=== PATIENT | male | born 1930 | race Caucasian/White ===

== ENCOUNTER 2020-06-14 07:33 | Inpatient (IN) | payer MEDICARE ==
[~2020-06-14] VITALS: Ht 188 cm; Wt 89.4 kg
--- NOTE | 2020-06-14 07:38 | Emergency Room Report ---
History of Present Illness General Chief Complaint: Hematemesis Source: Patient Present Illness HPI 89-year-old male history of hypertension, lymphoma presents with hematemesis, started today, no known aggravating or alleviating factors severity is moderate , constant patient denies any chest pain, but he does endorse some shortness of breath he endorses trace blood with vomit/cough, patient is unable to specify which, patient feels lightheaded, he also endorses some epigastric pain periumbilical pain that started as well. Allergies: Coded Allergies: No Known Allergies (Unverified , 06/14/20) Patient History Past Medical History: see triage record Reviewed Nursing Documentation: PMH: Agreed; PSxH: Agreed Review of Systems All Other Systems: negative except mentioned in HPI Physical Exam Sp02 EP Interpretation: reviewed, normal General Appearance: alert, non-toxic, mild distress Head: normocephalic, atraumatic Eyes: bilateral eye PERRL, bilateral eye EOMI ENT: uvula midline, dry mucus membranes Neck: supple, thyroid normal, supple/symm/no masses Respiratory: lungs clear, no respiratory distress, no retraction, no accessory muscle use Cardiovascular #1: normal peripheral pulses, regular rate, rhythm, no edema, no gallop, no murmur Gastrointestinal: non tender, no guarding, no rebound, distended Musculoskeletal: normal inspection Neurologic: alert, oriented x3 Psychiatric: mood/affect normal Skin: no rash, warm/dry Procedures Critical Care Time Critical Care Time Given the critical condition in which the patient arrived, the patient was immediately assessed by myself and the nurse, and cardiac monitoring initiated due to the potential for rapid decompensation of the patient's clinical condition. During the course of the patient's stay, I spent a considerable amount of time at the bedside performing serial re-evaluations of the patient's hemodynamic and clinical status because of the recognized potential threat to life or limb in this condition. I then had a chance to review not only all of the available current laboratory and radiographic studies obtained today, but I also reviewed old records available to me at the time. Additionally, any ancillary information available including black puller records were reviewed. Sequential vital signs were obtained. Critical Care time of 37 minutes was performed exclusive of billable procedures. Medical Decision Making Diagnostic Impression: Primary Impression: GI bleed Qualified Codes: K92.2 - Gastrointestinal hemorrhage, unspecified Additional Impressions: YU (acute kidney injury) Lactic acid acidosis Transaminitis ER Course 89-year-old male history of lymphoma presents with possible hemoptysis versus hematemesis, patient given Protonix, fluids, type and screen sent Plan for admission given his advanced age and multiple comorbidities Patient given broad-spectrum antibiotics ceftriaxone, vancomycin Spoke with Dr. Alexandru Hawkins at 9:50AM, patient is authorized to stay in [place]. Reevaluation 10:54 AM, lactic acidosis is improving with fluids Patient with a lymph node causing postobstructive hydroureter and hydronephrosis Plan for admission and work-up quevedo placed Patient admitted to Dr. Bailey Laboratory Tests Test 06/14/20 07:45 06/14/20 08:40 White Blood Count 10.0 K/UL (4.8-10.8) Red Blood Count 5.13 M/UL (4.70-6.10) Hemoglobin 13.3 G/DL (14.2-18.0) L Hematocrit 43.6 % (42.0-52.0) Mean Corpuscular Volume 85 FL (80-99) Mean Corpuscular Hemoglobin 25.9 PG (27.0-31.0) L Mean Corpuscular Hemoglobin Concent 30.4 G/DL (32.0-36.0) L Red Cell Distribution Width 13.9 % (11.6-14.8) Platelet Count 149 K/UL (150-450) L Mean Platelet Volume 10.2 FL (6.5-10.1) H Neutrophils (%) (Auto) 72.5 % (45.0-75.0) Lymphocytes (%) (Auto) 17.3 % (20.0-45.0) L Monocytes (%) (Auto) 9.3 % (1.0-10.0) Eosinophils (%) (Auto) 0.1 % (0.0-3.0) Basophils (%) (Auto) 0.8 % (0.0-2.0) Prothrombin Time 13.4 SEC (9.30-11.50) H Prothrombin Time INR 1.2 (0.9-1.1) H Activated Partial Thromboplast Time 30 SEC (23-33) Sodium Level 147 MMOL/L (136-145) H Potassium Level 4.7 MMOL/L (3.5-5.1) Chloride Level 106 MMOL/L (98-107) Carbon Dioxide Level 24 MMOL/L (21-32) Anion Gap 17 mmol/L (5-15) H Blood Urea Nitrogen 154 mg/dL (7-18) H Creatinine 7.3 MG/DL (0.55-1.30) H Estimated Glomerular Filtration Rate 7.1 mL/min (>60) Glucose Level 113 MG/DL (74-106) H Lactic Acid Level 5.30 mmol/L (0.4-2.0) H Calcium Level 10.8 MG/DL (8.5-10.1) H Phosphorus Level 8.4 MG/DL (2.5-4.9) H Magnesium Level 3.2 MG/DL (1.8-2.4) H Total Bilirubin 1.0 MG/DL (0.2-1.0) Aspartate Amino Transferase (AST) 109 U/L (15-37) H Alanine Aminotransferase (ALT) 124 U/L (12-78) H Alkaline Phosphatase 380 U/L (46-116) H Troponin I 0.039 ng/mL (0.000-0.056) Pro-B-Type Natriuretic Peptide 1320 pg/mL (0-125) H Total Protein 6.5 G/DL (6.4-8.2) Albumin 3.1 G/DL (3.4-5.0) L Globulin 3.4 g/dL Albumin/Globulin Ratio 0.9 (1.0-2.7) L Lipase 726 U/L (73-393) H Urine Color Pale yellow Urine Appearance Clear Urine pH 5 (4.5-8.0) Urine Specific [place] 1.010 (1.005-1.035) Urine Protein Negative (NEGATIVE) Urine Glucose (UA) Negative (NEGATIVE) Urine Ketones Negative (NEGATIVE) Urine Blood 2+ (NEGATIVE) H Urine Nitrite Negative (NEGATIVE) Urine Bilirubin Negative (NEGATIVE) Urine Urobilinogen Normal MG/DL (0.0-1.0) Urine Leukocyte Esterase 1+ (NEGATIVE) H Urine RBC 10-15 /HPF (0 - 0) H Urine WBC 0-2 /HPF (0 - 0) Urine Squamous Epithelial Cells Few /LPF (NONE/OCC) Urine Bacteria Occasional /HPF (NONE) EKG Diagnostic Results EKG Time: 07:54 EP Interpretation: NSR, rate 87, QTc 445, no acute ST elevations, left axis deviation Rhythm Strip Diag. Results Rhythm Strip Time: 08:05 EP Interpretation: yes Rate: 99 Rhythm: NSR, no PVC's, no ectopy Chest X-Ray Diagnostic Results Chest X-Ray Diagnostic Results : Chest X-Ray Ordered: Yes # of Views/Limited/Complete: 1 View Indication: Other - Cough EP Interpretation: Yes Interpretation: no consolidation, no effusion, no pneumothorax, no acute cardiopulmonary disease Impression: No acute disease Electronically Signed by: Eric Sprague MD CT/MRI/US Diagnostic Results CT/MRI/US Diagnostic Results : Impression TECHNIQUE: No oral contrast, per emergency room physician request. No IV contrast, due to history of renal insufficiency. Spiral acquisitions obtained through the chest, abdomen, and pelvis. Multiplanar reconstructions were generated. Total dose length product 624 mGycm. CTDIvol(s) 8 mGy. Radiation dose was minimized using automated exposure control COMPARISON: none FINDINGS Chest: The upper lobes and upper portions of the lower lobes demonstrate mild panlobular emphysema. A few small bullae are seen in the right upper lobe. A few areas of scarring are seen in the anterior inferior right upper lobe, within the right middle lobe, within the left lower lobe and inferior lingula. A calcified granuloma is seen at the left lung base and there is calcification within some of the scarring in the right middle lobe. No infiltrates, effusions, masses, nodules, or congestion demonstrated. A mass, presumably an enlarged lymph node, there is seen anterior to the ascending thoracic aorta. This measures 3.2 cm in diameter. No other mediastinal or hilar mass or adenopathy demonstrated. The heart size is normal. No pericardial effusion. There is very mild thickening of the distal esophageal wall and possibly a small hiatal hernia. The included thyroid is unremarkable. No axillary or chest wall mass or adenopathy. There is very mild bilateral gynecomastia. The bones are unremarkable except for mild degenerative spondylosis changes. The ascending thoracic aorta is ectatic but not frankly aneurysmal Abdomen pelvis: Lack of enteric contrast limits assessment of the GI tract. There is colonic diverticulosis. The appendix is normal. No small bowel distention. No free or loculated intraperitoneal gas or fluid is evident. There is extensive abdominal and pelvic lymphadenopathy. Enlarged nodes are seen anterior superior to the left hepatic lobe, within the lesser sac, within the reginaldo hepatis and within the retroperitoneum. There are enlarged bilateral iliac chain nodes. Enlarged nodes are also seen centrally in the pelvis. There is a mass which appears to be with in the wall of the dome of of the bladder the and extending exophytically from it. There is a mass which appears intimately related to the colon wall. The gallbladder is markedly abnormal, demonstrates what appear to be multiple areas of hyperattenuating mural thickening. No definite gallstones. No biliary ductal dilatation. Lack of IV contrast limits assessment of the solid organs. The liver demonstrates a subcentimeter low-attenuation lesion in segment 4A which is too small to characterize. The pancreas demonstrates what appears to be an area of enlargement at the body tail junction which appears to be intrinsic to the pancreatic parenchyma. Immediately inferior to this is an enlarged node. The spleen and adrenals are unremarkable. The kidneys demonstrate multiple fluid attenuation cysts as well as numerous hyperattenuating lesions. Most of the hyperattenuating lesions demonstrate Hounsfield numbers over 70, consistent with hyperdense cysts, but others demonstrate nonspecific attenuation. In addition, there is a large mass measuring 5 cm within the central left kidney which is isoattenuating to normal parenchyma. There is a complex cyst in the lower pole of left kidney which demonstrates somewhat thick hawkins, mural calcifications, and somewhat thick mural septa. The right kidney is mildly to moderately hydronephrotic, and there is hydroureter extending to just above the bladder, where an enlarged node is noted. Distal to this enlarged node, the ureter is normal in caliber. There are no renal or ureteral calculi. No left hydronephrosis or hydroureter The prostate is enlarged, measures 5.2 cm transverse diameter. IMPRESSION: Extensive lymphadenopathy, as described in detail above. Predominantly within the abdomen and pelvis, but there is also an enlarged mediastinal node. This is in keeping with stated clinical history of lymphoma. No definite acute thoracic abnormality Right hydronephrosis and hydroureter, apparently due to distal ureteral obstruction by an enlarged pelvic node Markedly abnormal and unusual appearing gallbladder wall, with areas of hyperattenuating mural thickening. Further investigation with sonography should be considered Intermediate attenuation 5 cm interpolar region left renal mass. While possibly a proteinaceous cyst, the possibility of solid neoplasm should also be considered. Correlate with clinical history, consider sonography to better characterize as clinically indicated Multiple bilateral fluid attenuation and hyperattenuating renal cysts. Other slightly less hyperattenuating renal lesions are indeterminate but most likely represent hyperattenuating/proteinaceous cysts as well COPD changes and areas of scarring, as described Mild distal esophageal wall thickening and possibly a small hiatal hernia Prostatomegaly Other findings as noted, including degenerative spondylosis, old granulomatous disease, mild gynecomastia The CT scanner at [facility] is accredited by the [employer] and the scans are performed using protocols designed to limit radiation exposure to as low as reasonably achievable to attain images of sufficient resolution adequate for diagnostic evaluation. Dictated By: Dharmesh Lee MD Electronically Signed By: Dharmesh Lee MD Signed Date/Time 06/14/20 1048 CC: Eric Sprague MD Disposition: ADMITTED INPATIENT Condition: Serious Eric Sprague MD Jun 14, 2020 07:38
[2020-06-14] MEDS ORDERED: cefTRIAXone 1 GM in NS 55 ML IVPB ONE (07:45)
[2020-06-14] MEDS ORDERED: Omnipaque 350 100ml vial INJ PRN ×2 (07:45)
[2020-06-14] MEDS ORDERED: Pantoprazole Inj IVP ONE (07:45)
[2020-06-14 07:50] VITALS: BP 83/40
[2020-06-14 08:19] LABS: BASOPHILS % (AUTO) 0.8 % (0.0-2.0); EOSINOPHILS % (AUTO) 0.1 % (0.0-3.0); HEMATOCRIT 43.6 % (42.0-52.0); HEMOGLOBIN 13.3 G/DL (14.2-18.0); LYMPHOCYTES % (AUTO) 17.3 % (20.0-45.0); MEAN CORPUSCULAR VOLUME 85 FL (80-99); MONOCYTES % (AUTO) 9.3 % (1.0-10.0); NEUTROPHILS % (AUTO) 72.5 % (45.0-75.0); PLATELET COUNT 149 K/UL (150-450); RED BLOOD COUNT 5.13 M/UL (4.70-6.10); RED CELL DISTRIBUTION WIDTH 13.9 % (11.6-14.8)
[2020-06-14 08:23] LABS: ANION GAP 17 mmol/L (5-15); BLOOD UREA NITROGEN 154 mg/dL (7-18); CALCIUM 10.8 MG/DL (8.5-10.1); CARBON DIOXIDE 24 MMOL/L (21-32); CHLORIDE 106 MMOL/L (98-107); CREATININE 7.3 MG/DL (0.55-1.30); POTASSIUM 4.7 MMOL/L (3.5-5.1); SODIUM 147 MMOL/L (136-145)
[2020-06-14 08:24] LABS: INR 1.2 (0.9-1.1)
[2020-06-14 08:29] LABS: ALANINE AMINOTRANSFERASE 124 U/L (12-78); ALBUMIN 3.1 G/DL (3.4-5.0); ALBUMIN/GLOBULIN RATIO 0.9 (1.0-2.7); ALKALINE PHOSPHATASE 380 U/L (46-116); ASPARTATE AMINO TRANSFERASE 109 U/L (15-37); PHOSPHORUS 8.4 MG/DL (2.5-4.9)
[2020-06-14] MEDS ORDERED: Vancomycin 1 GM in NS 275 ML IVPB ONE (08:30)
--- NOTE | 2020-06-14 08:42 | Diagnostic Imaging Report ---
Indication: Cough Technique: One view of the chest Comparison: none Findings: There are bilateral basilar atelectatic changes. Lungs and pleural spaces otherwise clear. The heart size is normal. Impression: Bibasilar atelectasis. No acute process otherwise
[2020-06-14 09:00] VITALS: BP 123/70
[2020-06-14 09:13] LABS: APPEARANCE,URINE CLEAR; BILIRUBIN, URINE NEGATIVE (NEGATIVE); COLOR,URINE PALE YELLOW; GLUCOSE, URINE (UA) NEGATIVE (NEGATIVE); KETONES,URINE NEGATIVE (NEGATIVE); LEUKOCYTE ESTERASE ,URINE 1+ (NEGATIVE); NITRITE,URINE NEGATIVE (NEGATIVE); PH,URINE 5 (4.5-8.0); PROTEIN,URINE NEGATIVE (NEGATIVE); UROBILINOGEN,URINE NORMAL MG/DL (0.0-1.0)
--- NOTE | 2020-06-14 10:53 | Diagnostic Imaging Report ---
CLINICAL INDICATION:Hematemesis, shortness of breath, epigastric and periumbilical pain, hemoptysis, history of lymphoma TECHNIQUE: No oral contrast, per emergency room physician request. No IV contrast, due to history of renal insufficiency. Spiral acquisitions obtained through the chest, abdomen, and pelvis. Multiplanar reconstructions were generated. Total dose length product 624 mGycm. CTDIvol(s) 8 mGy. Radiation dose was minimized using automated exposure control COMPARISON: none FINDINGS Chest: The upper lobes and upper portions of the lower lobes demonstrate mild panlobular emphysema. A few small bullae are seen in the right upper lobe. A few areas of scarring are seen in the anterior inferior right upper lobe, within the right middle lobe, within the left lower lobe and inferior lingula. A calcified granuloma is seen at the left lung base and there is calcification within some of the scarring in the right middle lobe. No infiltrates, effusions, masses, nodules, or congestion demonstrated. A mass, presumably an enlarged lymph node, there is seen anterior to the ascending thoracic aorta. This measures 3.2 cm in diameter. No other mediastinal or hilar mass or adenopathy demonstrated. The heart size is normal. No pericardial effusion. There is very mild thickening of the distal esophageal wall and possibly a small hiatal hernia. The included thyroid is unremarkable. No axillary or chest wall mass or adenopathy. There is very mild bilateral gynecomastia. The bones are unremarkable except for mild degenerative spondylosis changes. The ascending thoracic aorta is ectatic but not frankly aneurysmal Abdomen pelvis: Lack of enteric contrast limits assessment of the GI tract. There is colonic diverticulosis. The appendix is normal. No small bowel distention. No free or loculated intraperitoneal gas or fluid is evident. There is extensive abdominal and pelvic lymphadenopathy. Enlarged nodes are seen anterior superior to the left hepatic lobe, within the lesser sac, within the reginaldo hepatis and within the retroperitoneum. There are enlarged bilateral iliac chain nodes. Enlarged nodes are also seen centrally in the pelvis. There is a mass which appears to be with in the wall of the dome of of the bladder the and extending exophytically from it. There is a mass which appears intimately related to the colon wall. The gallbladder is markedly abnormal, demonstrates what appear to be multiple areas of hyperattenuating mural thickening. No definite gallstones. No biliary ductal dilatation. Lack of IV contrast limits assessment of the solid organs. The liver demonstrates a subcentimeter low-attenuation lesion in segment 4A which is too small to characterize. The pancreas demonstrates what appears to be an area of enlargement at the body tail junction which appears to be intrinsic to the pancreatic parenchyma. Immediately inferior to this is an enlarged node. The spleen and adrenals are unremarkable. The kidneys demonstrate multiple fluid attenuation cysts as well as numerous hyperattenuating lesions. Most of the hyperattenuating lesions demonstrate Hounsfield numbers over 70, consistent with hyperdense cysts, but others demonstrate nonspecific attenuation. In addition, there is a large mass measuring 5 cm within the central left kidney which is isoattenuating to normal parenchyma. There is a complex cyst in the lower pole of left kidney which demonstrates somewhat thick hawkins, mural calcifications, and somewhat thick mural septa. The right kidney is mildly to moderately hydronephrotic, and there is hydroureter extending to just above the bladder, where an enlarged node is noted. Distal to this enlarged node, the ureter is normal in caliber. There are no renal or ureteral calculi. No left hydronephrosis or hydroureter The prostate is enlarged, measures 5.2 cm transverse diameter. IMPRESSION: Extensive lymphadenopathy, as described in detail above. Predominantly within the abdomen and pelvis, but there is also an enlarged mediastinal node. This is in keeping with stated clinical history of lymphoma. No definite acute thoracic abnormality Right hydronephrosis and hydroureter, apparently due to distal ureteral obstruction by an enlarged pelvic node Markedly abnormal and unusual appearing gallbladder wall, with areas of hyperattenuating mural thickening. Further investigation with sonography should be considered Intermediate attenuation 5 cm interpolar region left renal mass. While possibly a proteinaceous cyst, the possibility of solid neoplasm should also be considered. Correlate with clinical history, consider sonography to better characterize as clinically indicated Multiple bilateral fluid attenuation and hyperattenuating renal cysts. Other slightly less hyperattenuating renal lesions are indeterminate but most likely represent hyperattenuating/proteinaceous cysts as well COPD changes and areas of scarring, as described Mild distal esophageal wall thickening and possibly a small hiatal hernia Prostatomegaly Other findings as noted, including degenerative spondylosis, old granulomatous disease, mild gynecomastia The CT scanner at [facility] is accredited by the [employer] and the scans are performed using protocols designed to limit radiation exposure to as low as reasonably achievable to attain images of sufficient resolution adequate for diagnostic evaluation.
[2020-06-14 12:28] VITALS: BP 147/78
--- NOTE | 2020-06-14 12:39 | Consultation ---
History of Present Illness General Date patient seen: Jun 14, 2020 Chief Complaint: Gastrointestinal Bleed Present Illness HPI 89-year-old male with a history of hypertension, lymphoma presented to ER with CC of hematemesis, epigastric pain, some shortness of breath started today , patient denied any chest pain, he has trace blood with vomit/cough, patient is unable to specify which, patient feels lightheaded. Pt was found to be in acute renal failure and is admitted for further management. Allergies: Coded Allergies: No Known Allergies (Unverified , 06/14/20) Medication History Scheduled Apixaban (Eliquis), 5 MG PO BID, (Reported) Atorvastatin (Lipitor), 20 MG ORAL BEDTIME, (Reported) Cholecalciferol (Vitamin D3) (Vitamin D3), 2,000 UNIT MC DAILY, (Reported) Colchicine (Colchicine), 0.6 MG PO NEEDED, (Reported) Cyanocobalamin (Vitamin B-12) (B-12), 1,000 MCG PO DAILY, (Reported) Finasteride (Finasteride), 5 MG ORAL DAILY, (Reported) Furosemide* (Lasix*), 40 MG ORAL TWICE A DAY, (Reported) Hydralazine Hcl* (Hydralazine Hcl*), 25 MG ORAL BID, (Reported) Labetalol Hcl* (Normodyne*), 200 MG ORAL EVERY 12 HOURS, (Reported) Omeprazole (Omeprazole), 20 MG PO DAILY, (Reported) Prednisone (Prednisone), 1.5 MG PO DAILY, (Reported) Tamsulosin HCl (Flomax), 0.4 MG ORAL BID, (Reported) Scheduled PRN Hydrocodone Bit/Acetaminophen 10-325* ([place] 10-325*), 1 TAB ORAL Q6H PRN for For Pain, (Reported) Patient History Healthcare decision maker Resuscitation status Advanced Directive on File Past Medical/Surgical History Past Medical/Surgical History: (1) History of hypertension (2) Lymphoma Review of Systems All Other Systems: negative except mentioned in HPI Physical Exam General Appearance: cachetic, thin Lines, tubes and drains: peripheral HEENT: normocephalic, atraumatic Neck: non-tender, normal alignment, supple Respiratory/Chest: chest wall non-tender, lungs clear, normal breath sounds Cardiovascular/Chest: normal rate Abdomen: normal bowel sounds, non tender Genitourinary/Rectal: normal genital exam, normal rectal exam Last 24 Hour Vital Signs Date Time Temp Pulse Resp B/P (MAP) Pulse Ox O2 Delivery O2 Flow Rate FiO2 06/14/20 12:28 98.0 86 20 147/78 97 Room Air 06/14/20 10:11 97.4 06/14/20 09:00 97.5 87 16 123/70 100 Room Air 06/14/20 07:50 97.5 106 17 83/40 99 Room Air 06/14/20 07:50 105 Room Air 06/14/20 07:40 97.5 88 14 81/40 (54) 99 Room Air Laboratory Tests Test 06/14/20 07:45 06/14/20 08:40 06/14/20 10:10 White Blood Count 10.0 K/UL (4.8-10.8) Red Blood Count 5.13 M/UL (4.70-6.10) Hemoglobin 13.3 G/DL (14.2-18.0) L Hematocrit 43.6 % (42.0-52.0) Mean Corpuscular Volume 85 FL (80-99) Mean Corpuscular Hemoglobin 25.9 PG (27.0-31.0) L Mean Corpuscular Hemoglobin Concent 30.4 G/DL (32.0-36.0) L Red Cell Distribution Width 13.9 % (11.6-14.8) Platelet Count 149 K/UL (150-450) L Mean Platelet Volume 10.2 FL (6.5-10.1) H Neutrophils (%) (Auto) 72.5 % (45.0-75.0) Lymphocytes (%) (Auto) 17.3 % (20.0-45.0) L Monocytes (%) (Auto) 9.3 % (1.0-10.0) Eosinophils (%) (Auto) 0.1 % (0.0-3.0) Basophils (%) (Auto) 0.8 % (0.0-2.0) Prothrombin Time 13.4 SEC (9.30-11.50) H Prothromb Time International Ratio 1.2 (0.9-1.1) H Activated Partial Thromboplast Time 30 SEC (23-33) Sodium Level 147 MMOL/L (136-145) H Potassium Level 4.7 MMOL/L (3.5-5.1) Chloride Level 106 MMOL/L (98-107) Carbon Dioxide Level 24 MMOL/L (21-32) Anion Gap 17 mmol/L (5-15) H Blood Urea Nitrogen 154 mg/dL (7-18) H Creatinine 7.3 MG/DL (0.55-1.30) H Estimat Glomerular Filtration Rate 7.1 mL/min (>60) Glucose Level 113 MG/DL (74-106) H Lactic Acid Level 5.30 mmol/L (0.4-2.0) H 3.10 mmol/L (0.66-2.22) H Calcium Level 10.8 MG/DL (8.5-10.1) H Phosphorus Level 8.4 MG/DL (2.5-4.9) H Magnesium Level 3.2 MG/DL (1.8-2.4) H Total Bilirubin 1.0 MG/DL (0.2-1.0) Aspartate Amino Transf (AST/SGOT) 109 U/L (15-37) H Alanine Aminotransferase (ALT/SGPT) 124 U/L (12-78) H Alkaline Phosphatase 380 U/L (46-116) H Troponin I 0.039 ng/mL (0.000-0.056) Pro-B-Type Natriuretic Peptide 1320 pg/mL (0-125) H Total Protein 6.5 G/DL (6.4-8.2) Albumin 3.1 G/DL (3.4-5.0) L Globulin 3.4 g/dL Albumin/Globulin Ratio 0.9 (1.0-2.7) L Lipase 726 U/L (73-393) H Urine Color Pale yellow Urine Appearance Clear Urine pH 5 (4.5-8.0) Urine Specific [place] 1.010 (1.005-1.035) Urine Protein Negative (NEGATIVE) Urine Glucose (UA) Negative (NEGATIVE) Urine Ketones Negative (NEGATIVE) Urine Blood 2+ (NEGATIVE) H Urine Nitrite Negative (NEGATIVE) Urine Bilirubin Negative (NEGATIVE) Urine Urobilinogen Normal MG/DL (0.0-1.0) Urine Leukocyte Esterase 1+ (NEGATIVE) H Urine RBC 10-15 /HPF (0 - 0) H Urine WBC 0-2 /HPF (0 - 0) Urine Squamous Epithelial Cells Few /LPF (NONE/OCC) Urine Bacteria Occasional /HPF (NONE) Height (Feet): 6 Height (Inches): 2.00 Weight (Pounds): 180 Medications Current Medications Medications (Trade) Dose Ordered Sig/Tasia Route PRN Reason Start Time Stop Time Status Last Admin Dose Admin Acetaminophen (Tylenol) 650 mg Q4H PRN ORAL fever 06/14/20 12:30 07/14/20 12:29 UNV Dextrose (Dextrose 50%) 25 ml Q30M PRN IV Hypoglycemia 06/14/20 12:30 09/12/20 12:29 UNV Dextrose (Dextrose 50%) 50 ml Q30M PRN IV Hypoglycemia 06/14/20 12:30 09/12/20 12:29 UNV Dextrose/Sodium Chloride 1,000 ml @ 100 mls/hr Q10H IV 06/14/20 12:27 07/14/20 12:26 UNV Diphenhydramine HCl (Benadryl) 25 mg Q6H PRN ORAL Itching/Pruritis 06/14/20 12:30 07/14/20 12:29 UNV Ondansetron HCl (Zofran) 4 mg Q6H PRN IVP Nausea & Vomiting 06/14/20 12:30 07/14/20 12:29 UNV Temazepam (Restoril) 15 mg HSPRN PRN ORAL Insomnia 06/14/20 12:30 06/21/20 12:29 UNV Assessment/Plan Problem List: (1) Upper GI bleeding ICD Codes: K92.2 - Gastrointestinal hemorrhage, unspecified SNOMED: 22449863 (2) YU (acute kidney injury) ICD Codes: N17.9 - Acute kidney failure, unspecified SNOMED: 01313993, [id number] (3) Hydronephrosis ICD Codes: N13.30 - Unspecified hydronephrosis SNOMED: 97165750 (4) Obstructive nephropathy ICD Codes: N13.8 - Other obstructive and reflux uropathy SNOMED: 75074656 (5) Lymphoma ICD Codes: C85.90 - Non-Hodgkin lymphoma, unspecified, unspecified site SNOMED: 756457739 (6) History of hypertension ICD Codes: Z86.79 - Personal history of other diseases of the circulatory system SNOMED: 411089586 Assessment/Plan: iv fluids pt might need a nephrostomy check electrolytes h2 blockers Premarin for uremic bleeding avoid heparin and NSAID avoid nephrotoxic meds. dvt prophylaxis. Pedro Luis Michaels MD Jun 14, 2020 12:39
[2020-06-14] MEDS ORDERED: Lidocaine 1% Plain 30 ml INJ PRN (12:45)
[2020-06-14] MEDS ORDERED: Isovue-300 100ml vial INJ PRN (12:45)
[2020-06-14] MEDS: D5NS 1,000 ML IV SCH ×2 (13:00→23:20)
[2020-06-14 13:30] VITALS: BP 114/57
--- NOTE | 2020-06-14 14:38 | General Progress Note ---
Assessment/Plan Problem List: (1) Obstructive nephropathy ICD Codes: N13.8 - Other obstructive and reflux uropathy SNOMED: 92237670 (2) Lymphoma ICD Codes: C85.90 - Non-Hodgkin lymphoma, unspecified, unspecified site SNOMED: 873813004 (3) Hydronephrosis ICD Codes: N13.30 - Unspecified hydronephrosis SNOMED: 06701085 (4) GI bleed ICD Codes: K92.2 - Gastrointestinal hemorrhage, unspecified SNOMED: 60953821 Qualifiers: Qualified Codes: K92.2 - Gastrointestinal hemorrhage, unspecified (5) Transaminitis ICD Codes: R74.0 - Nonspecific elevation of levels of transaminase and lactic acid dehydrogenase [LDH] SNOMED: 664816240, 873174415 (6) Lactic acid acidosis ICD Codes: E87.2 - Acidosis SNOMED: 64362211 (7) History of hypertension ICD Codes: Z86.79 - Personal history of other diseases of the circulatory system SNOMED: 959071848 Assessment/Plan: ppi fu H&H abd us hepatitis panel repeat lfts in am EGD in am Subjective Allergies: Coded Allergies: No Known Allergies (Unverified , 06/14/20) Objective Last 24 Hour Vital Signs Date Time Temp Pulse Resp B/P (MAP) Pulse Ox O2 Delivery O2 Flow Rate FiO2 06/14/20 13:40 Room Air 06/14/20 12:28 98.0 86 20 147/78 97 Room Air 06/14/20 10:11 97.4 06/14/20 09:00 97.5 87 16 123/70 100 Room Air 06/14/20 07:50 97.5 106 17 83/40 99 Room Air 06/14/20 07:50 105 Room Air 06/14/20 07:40 97.5 88 14 81/40 (54) 99 Room Air Laboratory Tests 06/14/20 07:45: White Blood Count 10.0, Red Blood Count 5.13, Hemoglobin 13.3L, Hematocrit 43.6 , Mean Corpuscular Volume 85, Mean Corpuscular Hemoglobin 25.9L, Mean Corpuscular Hemoglobin Concent 30.4L, Red Cell Distribution Width 13.9, Platelet Count 149L, Mean Platelet Volume 10.2H, Neutrophils (%) (Auto) 72.5, Lymphocytes (%) (Auto) 17.3L, Monocytes (%) (Auto) 9.3, Eosinophils (%) (Auto) 0.1, Basophils (%) (Auto) 0.8, Prothrombin Time 13.4H, Prothromb Time International Ratio 1.2H, Activated Partial Thromboplast Time 30, Sodium Level 147H, Potassium Level 4.7, Chloride Level 106, Carbon Dioxide Level 24, Anion Gap 17H, Blood Urea Nitrogen 154H, Creatinine 7.3H, Estimat Glomerular Filtration Rate 7.1, Glucose Level 113H, Lactic Acid Level 5.30H, Calcium Level 10.8H, Phosphorus Level 8.4H, Magnesium Level 3.2H, Total Bilirubin 1.0, Aspartate Amino Transf (AST/SGOT) 109H, Alanine Aminotransferase (ALT/SGPT) 124H , Alkaline Phosphatase 380H, Troponin I 0.039, Pro-B-Type Natriuretic Peptide 1320H, Total Protein 6.5, Albumin 3.1L, Globulin 3.4, Albumin/Globulin Ratio 0.9L, Lipase 726H 06/14/20 08:40: Urine Color Pale yellow, Urine Appearance Clear, Urine pH 5, Urine Specific [place] 1.010, Urine Protein Negative, Urine Glucose (UA) Negative, Urine Ketones Negative, Urine Blood 2+H, Urine Nitrite Negative, Urine Bilirubin Negative, Urine Urobilinogen Normal, Urine Leukocyte Esterase 1+H, Urine RBC 10- 15H, Urine WBC 0-2, Urine Squamous Epithelial Cells Few, Urine Bacteria Occasional 06/14/20 10:10: Lactic Acid Level 3.10H Height (Feet): 6 Height (Inches): 2.00 Weight (Pounds): 180 General Appearance: alert EENT: normal ENT inspection Neck: supple Cardiovascular: normal rate Respiratory/Chest: decreased breath sounds Abdomen: normal bowel sounds, non tender, soft Extremities: non-tender Sam Negron MD Jun 14, 2020 14:38
--- NOTE | 2020-06-14 14:58 | Consultation ---
Consult Note Consult Note I am asked to evaluate the patient at the request of Dr. Bailey for renal failure Patient seen in room 201 bed 2. Discussed with RN. Patient already has a Farr catheter put within at the emergency room. 89-year-old male with a history of hypertension, lymphoma presented to ER with CC of hematemesis, epigastric pain, some shortness of breath started today , patient denied any chest pain, he has trace blood with vomit/cough, patient is unable to specify which, patient feels lightheaded. Pt was found to be in acute renal failure and is admitted for further management. Allergies: Coded Allergies: No Known Allergies (Unverified , 06/14/20) PHYSICAL EXAMINATION: VITAL SIGNS: Temperature 98.0, respirations 20, pulse 86, blood pressure 147/78, and pulse-ox 97% on room air. GENERAL: The patient is a well-developed and well-nourished male, in no apparent distress. Lethargic HEENT: Eyes, pupils are equal and responsive to light and accommodation. Extraocular movements intact. NECK: Supple without lymphadenopathy. CHEST: Decreased breath sounds over the bases CARDIOVASCULAR: Regular rhythm and rate. Somewhat tachycardic ABDOMEN: Soft, somewhat distended. There is tenderness to palpation in the epigastric region. No evidence of rebound or guarding noted. EXTREMITIES: Negative for clubbing, cyanosis, or edema. RECTAL: Not performed. GENITAL: Not performed. NEUROLOGIC: Lethargic moves all extremities LABORATORY STUDIES: WBC 10.0, hemoglobin 13.3, hematocrit 43.6, and platelets 149,000. Sodium 147, potassium 4.7, chloride 106, CO2 of 24, BUN 154, creatinine 7.3, and glucose 113. Total bilirubin 1.3. AST elevated at 109, ALT elevated at 124, and alkaline phosphatase elevated at 380. BNP elevated at 1320. Troponin 0.03. A CT scan of the chest, abdomen, and pelvis revealed extensive lymphadenopathy in the consistent with non-Hodgkin's lymphoma. There was right hydronephrosis secondary to distal ureteral obstruction secondary to enlarged pelvic lymph node. Assessment/Plan Acute renal failure Possible underlying chronic kidney failure Lymphoma Hypertension Upper GI bleed Transaminitis Elevated lipase Farr catheter in place Will arrange for hemodialysis GI RN to obtain consent for placement of dialysis catheter No need for nephrostomy at this time since the blockage is unilateral Kidney ultrasound Phosphorus binders IV Protonix P.o. Amphojel Keep the blood pressure in check CT of the abdomen: Extensive lymphadenopathy, . Predominantly within the abdomen and pelvis, but there is also an enlarged mediastinal node. Right hydronephrosis and hydroureter, apparently due to distal ureteral obstruction by an enlarged pelvic node Markedly abnormal and unusual appearing gallbladder wall, with areas of hyperattenuating mural thickening. Intermediate attenuation 5 cm interpolar region left renal mass. While possibly a proteinaceous cyst, the possibility of solid neoplasm should also be considered. COPD changes and areas of scarring, as described Mild distal esophageal wall thickening and possibly a small hiatal hernia Prostatomegaly I spent an additional 36 minutes on review of medical records including prior hospital records,consult notes, progress notes, procedures ,imaging labs, hemodynamics, and other clinical documentation. Over 35 min Thomas Ruby MD Jun 14, 2020 14:58
[2020-06-14 15:43] LABS: CREATINE KINASE 101 U/L (26-308)
--- NOTE | 2020-06-14 15:57 | Diagnostic Imaging Report ---
Indication: Acute renal failure Technique: Grayscale and duplex images of the kidneys, retroperitoneum, and bladder were obtained. Comparison: Reference made to abdomen pelvis CT of earlier the same day Findings: Right kidney measures 12.6 cm in length. Left kidney measures cm in length. Both kidneys demonstrate normal echogenicity. There is mild right hydronephrosis. Multiple cysts are demonstrated bilaterally. Complex cyst with a thick septum is seen coming off of the lower pole of the right kidney. Mid to upper pole abnormality described on recent CT scan is demonstrated be a benign simple cyst Normal inferior vena cava. Bladder is empty, contains a Farr catheter. Hypoechoic structure with marked vascularity is seen at the anterolateral aspect of the bladder.. Impression: Mild right hydronephrosis, demonstrated on previous CT scan to be secondary to distal ureteral compression by lymphadenopathy Bladder wall mass, likely neoplastic, also described on recent CT. Uncertain as to whether this represents an intrinsic bladder tumor or an external node compressing and possibly invading the bladder wall Multiple renal cysts bilaterally. Degenerative structure in the left upper pole is demonstrated to represent a benign simple cyst sonographically. Left lower pole cyst is complex with a thick septation. This would make it a Bosniak 3 cyst for which urologic consultation is recommended Farr catheter. Resultant empty bladder
[2020-06-14 16:00] VITALS: BP 149/76
[2020-06-14] MEDS: Aluminum Hydroxide Gel Susp 15ml ORAL SCH ×2 (16:05→21:07)
[2020-06-14] MEDS ORDERED: FUROSEMIDE40 MG ORAL (16:33)
[2020-06-14] MEDS ORDERED: HYDRALAZINE HCL25 M1 ORAL (16:33)
[2020-06-14] MEDS ORDERED: ELIQUIS5 MG PO (16:33)
[2020-06-14] MEDS ORDERED: FINASTERIDE5 MG ORAL (16:33)
[2020-06-14] MEDS ORDERED: FLOMAX0.4 MG ORAL (16:33)
[2020-06-14] MEDS ORDERED: LABETALOL HCL200 MG ORAL (16:34)
[2020-06-14] MEDS ORDERED: NORCO 10-325 T1 EACH ORAL (16:34)
[2020-06-14] MEDS ORDERED: B-121000 MCG PO (16:34)
[2020-06-14] MEDS ORDERED: PREDNISONE10 M2 PO (16:34)
[2020-06-14] MEDS ORDERED: LIPITOR80 MG ORAL (16:34)
[2020-06-14] MEDS ORDERED: VITAMIN D32400 UNIT/ MC (16:34)
[2020-06-14] MEDS ORDERED: COLCHICINE0.6 M1 PO (16:34)
[2020-06-14] MEDS ORDERED: OMEPRAZOLE20 M4 PO (16:34)
[2020-06-14] MEDS: Docusate 100mg cap ORAL SCH (18:22)
--- NOTE | 2020-06-14 18:31 | History & Physical ---
History and Physical History & Physicial Dictated for Int Med-Dr Bailey no. [id number]. Jorge Luis Javed MD Jun 14, 2020 18:31
[2020-06-14 20:00] VITALS: BP 125/57
[2020-06-14] MEDS: Pantoprazole Inj IVP SCH (21:06)
--- NOTE | 2020-06-14 21:26 | Consultation ---
History of Present Illness General Date patient seen: Jun 15, 2020 Chief Complaint: Gastrointestinal Bleed Present Illness HPI 89-year-old male history of hypertension, lymphoma presents with hematemesis, started prior to admission, no known aggravating or alleviating factors severity is moderate, constant patient denies any chest pain, but he does endorse some shortness of breath he endorses trace blood with vomit/cough, patient is unable to specify which, patient feels lightheaded, he also endorses some epigastric pain periumbilical pain that started as well. Patient identified to have abnormal labs and admitted for further care and management. Given GI bleed need for dialysis surgical to evaluate and assist with care patient seen patient by chart reviewed no nausea fever chills currently feeling well labs noted Allergies: Coded Allergies: No Known Allergies (Unverified , 06/14/20) Medication History Scheduled Apixaban (Eliquis), 5 MG PO BID, (Reported) Atorvastatin (Lipitor), 20 MG ORAL BEDTIME, (Reported) Cholecalciferol (Vitamin D3) (Vitamin D3), 2,000 UNIT MC DAILY, (Reported) Colchicine (Colchicine), 0.6 MG PO NEEDED, (Reported) Cyanocobalamin (Vitamin B-12) (B-12), 1,000 MCG PO DAILY, (Reported) Finasteride (Finasteride), 5 MG ORAL DAILY, (Reported) Furosemide* (Lasix*), 40 MG ORAL TWICE A DAY, (Reported) Hydralazine Hcl* (Hydralazine Hcl*), 25 MG ORAL BID, (Reported) Labetalol Hcl* (Normodyne*), 200 MG ORAL EVERY 12 HOURS, (Reported) Omeprazole (Omeprazole), 20 MG PO DAILY, (Reported) Prednisone (Prednisone), 1.5 MG PO DAILY, (Reported) Tamsulosin HCl (Flomax), 0.4 MG ORAL BID, (Reported) Scheduled PRN Hydrocodone Bit/Acetaminophen 10-325* (Romeo 10-325*), 1 TAB ORAL Q6H PRN for For Pain, (Reported) Patient History History Provided By: Patient, Medical Record, PMD Healthcare decision maker Resuscitation status Advanced Directive on File Past Medical/Surgical History Past Medical/Surgical History: (1) History of hypertension (2) Upper GI bleeding (3) Lactic acid acidosis (4) Transaminitis (5) YU (acute kidney injury) (6) GI bleed (7) Hydronephrosis (8) Lymphoma (9) Obstructive nephropathy Review of Systems Constitutional: Denies: no symptoms, see HPI, chills, sweats, fever, malaise, weakness, other Eye: Denies: no symptoms, see HPI, eye pain, blurred vision, tearing, double vision, nose pain, nose congestion, acuity changes, discharge, other ENT: Denies: no symptoms, see HPI, ear pain, ear discharge, nose pain, nose congestion, throat pain, throat swelling, mouth pain, hearing loss, nasal discharge, other Respiratory: Denies: no symptoms, see HPI, cough, orthopnea, shortness of breath, stridor, wheezing, LOCO, sputum, other Cardiovascular: Denies: no symptoms, see HPI, chest pain, edema, palpitations, syncope, PND, other Gastrointestinal: Denies: no symptoms, see HPI, abdominal pain, constipation, diarrhea, nausea, vomiting, melena, hematemesis, other Genitourinary: Denies: no symptoms, see HPI, discharge, dysuria, frequency, hematuria, pain, retention, incontinence, urgency, vag bleed/dc, other Musculoskeletal: Denies: no symptoms, see HPI, back pain, gout, joint pain, joint swelling, muscle pain, muscle stiffness, other Skin: Denies: no symptoms, see HPI, rash, change in color, change in hair/nails , dryness, lesions, other Psychiatric: Denies: no symptoms, see HPI, prior hx, anxiety, depressed feelings, emotional problems, SI, HI, hallucinations, other Neurological: Denies: no symptoms, see HPI, headache, numbness, paresthesia, seizure, tingling, tremors, focal weakness, syncope, dizziness, other Endocrine: Denies: no symptoms, see HPI, excessive sweating, flushing, intolerance to temperature, increased thirst, increased urine, unexplained weight loss, other Hematologic/Lymphatic: Denies: no symptoms, see HPI, anemia, blood clots, easy bleeding, easy bruising, swollen glands, diathesis, other All Other Systems: negative except mentioned in HPI Physical Exam General Appearance: WD/WN, no apparent distress, alert Lines, tubes and drains: peripheral HEENT: normocephalic, atraumatic, anicteric, mucous membranes moist, PERRL Neck: non-tender, normal alignment, supple, normal inspection Respiratory/Chest: chest wall non-tender, lungs clear, normal breath sounds, no respiratory distress, no accessory muscle use Cardiovascular/Chest: normal peripheral pulses, normal rate, regular rhythm Abdomen: normal bowel sounds, non tender, soft, no organomegaly, no mass Genitourinary/Rectal: normal genital exam, [place] Extremities: normal range of motion, non-tender, normal inspection, no calf tenderness Skin Exam: warm/dry Neurologic: alert, oriented x 3, responsive Last 24 Hour Vital Signs Date Time Temp Pulse Resp B/P (MAP) Pulse Ox O2 Delivery O2 Flow Rate FiO2 06/14/20 16:00 98.0 85 20 149/76 (100) 97 06/14/20 15:53 78 06/14/20 13:40 Room Air 06/14/20 13:30 98.6 84 20 114/57 (76) 97 06/14/20 13:18 84 06/14/20 12:28 98.0 86 20 147/78 97 Room Air 06/14/20 10:11 97.4 06/14/20 09:00 97.5 87 16 123/70 100 Room Air 06/14/20 07:50 97.5 106 17 83/40 99 Room Air 06/14/20 07:50 105 Room Air 06/14/20 07:40 97.5 88 14 81/40 (54) 99 Room Air Laboratory Tests Test 06/14/20 07:45 06/14/20 08:40 06/14/20 10:10 White Blood Count 10.0 K/UL (4.8-10.8) Red Blood Count 5.13 M/UL (4.70-6.10) Hemoglobin 13.3 G/DL (14.2-18.0) L Hematocrit 43.6 % (42.0-52.0) Mean Corpuscular Volume 85 FL (80-99) Mean Corpuscular Hemoglobin 25.9 PG (27.0-31.0) L Mean Corpuscular Hemoglobin Concent 30.4 G/DL (32.0-36.0) L Red Cell Distribution Width 13.9 % (11.6-14.8) Platelet Count 149 K/UL (150-450) L Mean Platelet Volume 10.2 FL (6.5-10.1) H Neutrophils (%) (Auto) 72.5 % (45.0-75.0) Lymphocytes (%) (Auto) 17.3 % (20.0-45.0) L Monocytes (%) (Auto) 9.3 % (1.0-10.0) Eosinophils (%) (Auto) 0.1 % (0.0-3.0) Basophils (%) (Auto) 0.8 % (0.0-2.0) Prothrombin Time 13.4 SEC (9.30-11.50) H Prothromb Time International Ratio 1.2 (0.9-1.1) H Activated Partial Thromboplast Time 30 SEC (23-33) Sodium Level 147 MMOL/L (136-145) H Potassium Level 4.7 MMOL/L (3.5-5.1) Chloride Level 106 MMOL/L (98-107) Carbon Dioxide Level 24 MMOL/L (21-32) Anion Gap 17 mmol/L (5-15) H Blood Urea Nitrogen 154 mg/dL (7-18) H Creatinine 7.3 MG/DL (0.55-1.30) H Estimat Glomerular Filtration Rate 7.1 mL/min (>60) Glucose Level 113 MG/DL (74-106) H Lactic Acid Level 5.30 mmol/L (0.4-2.0) H 3.10 mmol/L (0.66-2.22) H Uric Acid 22.0 MG/DL (2.6-7.2) H Calcium Level 10.8 MG/DL (8.5-10.1) H Phosphorus Level 8.4 MG/DL (2.5-4.9) H Magnesium Level 3.2 MG/DL (1.8-2.4) H Total Bilirubin 1.0 MG/DL (0.2-1.0) Aspartate Amino Transf (AST/SGOT) 109 U/L (15-37) H Alanine Aminotransferase (ALT/SGPT) 124 U/L (12-78) H Alkaline Phosphatase 380 U/L (46-116) H Total Creatine Kinase 101 U/L (26-308) Troponin I 0.039 ng/mL (0.000-0.056) Pro-B-Type Natriuretic Peptide 1320 pg/mL (0-125) H Total Protein 6.5 G/DL (6.4-8.2) Albumin 3.1 G/DL (3.4-5.0) L Globulin 3.4 g/dL Albumin/Globulin Ratio 0.9 (1.0-2.7) L Lipase 726 U/L (73-393) H Urine Color Pale yellow Urine Appearance Clear Urine pH 5 (4.5-8.0) Urine Specific [place] 1.010 (1.005-1.035) Urine Protein Negative (NEGATIVE) Urine Glucose (UA) Negative (NEGATIVE) Urine Ketones Negative (NEGATIVE) Urine Blood 2+ (NEGATIVE) H Urine Nitrite Negative (NEGATIVE) Urine Bilirubin Negative (NEGATIVE) Urine Urobilinogen Normal MG/DL (0.0-1.0) Urine Leukocyte Esterase 1+ (NEGATIVE) H Urine RBC 10-15 /HPF (0 - 0) H Urine WBC 0-2 /HPF (0 - 0) Urine Squamous Epithelial Cells Few /LPF (NONE/OCC) Urine Bacteria Occasional /HPF (NONE) Urine Random Creatinine Pending Urine Random Microalbumin Pending Urine Random Sodium 27 mmol/L (20-110) Urine Microalbumin/Creatinine Ratio Pending Height (Feet): 6 Height (Inches): 2.00 Weight (Pounds): 180 Medications Current Medications Medications (Trade) Dose Ordered Sig/Tasia Route PRN Reason Start Time Stop Time Status Last Admin Dose Admin Acetaminophen (Tylenol) 650 mg Q4H PRN ORAL fever (T>100.5F) 06/14/20 12:30 07/14/20 12:29 Aluminum Hydroxide (Amphojel) 1,920 mg Q6H ORAL 06/14/20 16:00 07/14/20 15:59 06/14/20 21:07 Dextrose (Dextrose 50%) 25 ml Q30M PRN IV Hypoglycemia 06/14/20 12:30 09/12/20 12:29 Dextrose (Dextrose 50%) 50 ml Q30M PRN IV Hypoglycemia 06/14/20 12:30 09/12/20 12:29 Dextrose/Sodium Chloride 1,000 ml @ 100 mls/hr Q10H IV 06/14/20 13:00 07/14/20 12:59 06/14/20 13:00 Diphenhydramine HCl (Benadryl) 25 mg Q6H PRN ORAL Itching/Pruritis 06/14/20 12:30 07/14/20 12:29 Docusate Sodium (Colace) 100 mg THREE TIMES A DAY ORAL 06/14/20 18:00 07/14/20 17:59 06/14/20 18:22 Iopamidol (Isovue-300 100ml) 100 ml NOW PRN INJ radiology 06/14/20 12:45 Lidocaine HCl (Xylocaine 1% 30ml) 30 ml ONCE PRN INJ radiology procedure 06/14/20 12:45 09/12/20 12:44 Ondansetron HCl (Zofran) 4 mg Q6H PRN IVP Nausea & Vomiting 06/14/20 12:30 07/14/20 12:29 Pantoprazole (Protonix) 40 mg EVERY 12 HOURS IVP 06/14/20 21:00 07/14/20 20:59 06/14/20 21:06 Temazepam (Restoril) 15 mg HSPRN PRN ORAL Insomnia 06/14/20 12:30 06/21/20 12:29 Assessment/Plan Problem List: (1) History of hypertension ICD Codes: Z86.79 - Personal history of other diseases of the circulatory system SNOMED: 746823867 (2) Upper GI bleeding ICD Codes: K92.2 - Gastrointestinal hemorrhage, unspecified SNOMED: 62951125 (3) Lactic acid acidosis ICD Codes: E87.2 - Acidosis SNOMED: 43343123 (4) Transaminitis Assessment & Plan: Liver is diffusely heterogeneous. Spleen is within normal limits for size. There is abnormal wall thickening and perhaps wall calcifications noted of the gallbladder. Intraluminal sludge noted. Common bile duct measures 5 mm. Pancreas is marginally visualized. There are multiple cysts noted in both kidneys. Dominant lesion at the lower pole of the left kidney is complex with mural wall thickening and septations. Wall calcifications was noted of this lesion on prior CT. Aorta and cava are mostly obscured. ICD Codes: R74.0 - Nonspecific elevation of levels of transaminase and lactic acid dehydrogenase [LDH] SNOMED: 142864405, 773467155 (5) YU (acute kidney injury) Assessment & Plan: HD cath placement needed plan for HD ICD Codes: N17.9 - Acute kidney failure, unspecified SNOMED: 84392311, 2746395 (6) GI bleed Assessment & Plan: Chest: The upper lobes and upper portions of the lower lobes demonstrate mild panlobular emphysema. A few small bullae are seen in the right upper lobe. A few areas of scarring are seen in the anterior inferior right upper lobe, within the right middle lobe, within the left lower lobe and inferior lingula. A calcified granuloma is seen at the left lung base and there is calcification within some of the scarring in the right middle lobe. No infiltrates, effusions, masses, nodules, or congestion demonstrated. A mass, presumably an enlarged lymph node, there is seen anterior to the ascending thoracic aorta. This measures 3.2 cm in diameter. No other mediastinal or hilar mass or adenopathy demonstrated. The heart size is normal. No pericardial effusion. There is very mild thickening of the distal esophageal wall and possibly a small hiatal hernia. The included thyroid is unremarkable. No axillary or chest wall mass or adenopathy. There is very mild bilateral gynecomastia. The bones are unremarkable except for mild degenerative spondylosis changes. The ascending thoracic aorta is ectatic but not frankly aneurysmal Abdomen pelvis: Lack of enteric contrast limits assessment of the GI tract. There is colonic diverticulosis. The appendix is normal. No small bowel distention. No free or loculated intraperitoneal gas or fluid is evident. There is extensive abdominal and pelvic lymphadenopathy. Enlarged nodes are seen anterior superior to the left hepatic lobe, within the lesser sac, within the reginaldo hepatis and within the retroperitoneum. There are enlarged bilateral iliac chain nodes. Enlarged nodes are also seen centrally in the pelvis. There is a mass which appears to be with in the wall of the dome of of the bladder the and extending exophytically from it. There is a mass which appears intimately related to the colon wall. The gallbladder is markedly abnormal, demonstrates what appear to be multiple areas of hyperattenuating mural thickening. No definite gallstones. No biliary ductal dilatation. Lack of IV contrast limits assessment of the solid organs. The liver demonstrates a subcentimeter low-attenuation lesion in segment 4A which is too small to characterize. The pancreas demonstrates what appears to be an area of enlargement at the body tail junction which appears to be intrinsic to the pancreatic parenchyma. Immediately inferior to this is an enlarged node. The spleen and adrenals are unremarkable. The kidneys demonstrate multiple fluid attenuation cysts as well as numerous hyperattenuating lesions. Most of the hyperattenuating lesions demonstrate Hounsfield numbers over 70, consistent with hyperdense cysts, but others demonstrate nonspecific attenuation. In addition, there is a large mass measuring 5 cm within the central left kidney which is isoattenuating to normal parenchyma. There is a complex cyst in the lower pole of left kidney which demonstrates somewhat thick hawkins, mural calcifications, and somewhat thick mural septa. The right kidney is mildly to moderately hydronephrotic, and there is hydroureter extending to just above the bladder, where an enlarged node is noted. Distal to this enlarged node, the ureter is normal in caliber. There are no renal or ureteral calculi. No left hydronephrosis or hydroureter The prostate is enlarged, measures 5.2 cm transverse diameter. IMPRESSION: Extensive lymphadenopathy, as described in detail above. Predominantly within the abdomen and pelvis, but there is also an enlarged mediastinal node. This is in keeping with stated clinical history of lymphoma. No definite acute thoracic abnormality Right hydronephrosis and hydroureter, apparently due to distal ureteral obstruction by an enlarged pelvic node Markedly abnormal and unusual appearing gallbladder wall, with areas of hyperattenuating mural thickening. Further investigation with sonography should be considered Intermediate attenuation 5 cm interpolar region left renal mass. While possibly a proteinaceous cyst, the possibility of solid neoplasm should also be considered. Correlate with clinical history, consider sonography to better characterize as clinically indicated Multiple bilateral fluid attenuation and hyperattenuating renal cysts. Other slightly less hyperattenuating renal lesions are indeterminate but most likely represent hyperattenuating/proteinaceous cysts as well COPD changes and areas of scarring, as described Mild distal esophageal wall thickening and possibly a small hiatal hernia Prostatomegaly Other findings as noted, including degenerative spondylosis, old granulomatous disease, mild gynecomastia ICD Codes: K92.2 - Gastrointestinal hemorrhage, unspecified SNOMED: 01135718 Qualifiers: Qualified Codes: K92.2 - Gastrointestinal hemorrhage, unspecified (7) Hydronephrosis ICD Codes: N13.30 - Unspecified hydronephrosis SNOMED: 72938621 (8) Lymphoma ICD Codes: C85.90 - Non-Hodgkin lymphoma, unspecified, unspecified site SNOMED: 223545595 (9) Obstructive nephropathy ICD Codes: N13.8 - Other obstructive and reflux uropathy SNOMED: 23761148 Assessment/Plan: discussed with nephrology. plan for temp HD catheter insertion HD 06/15 Best Kam Jun 14, 2020 21:26
--- NOTE | 2020-06-14 22:15 | History and Physical Report ---
DATE OF ADMISSION: 06/14/2020 CHIEF COMPLAINT: The patient is an 89-year-old male, who presents with chief complaint of vomiting blood. HISTORY OF PRESENT ILLNESS: The patient has a history of non-Hodgkin's lymphoma. The patient states he began to experience vomiting this morning. The patient states the vomit was tinged with red blood. The patient states he felt dizzy as well. The patient presented to [facility]. The patient was admitted with hematemesis to rule out upper GI bleed. REVIEW OF SYSTEMS: CONSTITUTIONAL: The patient denies weight loss or weight gain. The patient denies fevers or chills. HEENT: The patient denies ear or throat pain. The patient denies headache. CARDIOVASCULAR: The patient denies palpitations or chest pain. CHEST: The patient denies wheeze or shortness of breath. ABDOMINAL: The patient complains of epigastric pain. The patient complains of hematemesis as above. The patient complains of nausea and vomiting as above. The patient denies diarrhea or constipation. GENITOURINARY: The patient denies dysuria or increased frequency of urination. NEUROMUSCULAR: The patient denies seizures or generalized weakness. PAST MEDICAL HISTORY: Significant for: 1. Non-Hodgkin's lymphoma. 2. Hypertension. PAST SURGICAL HISTORY: The patient denies. CURRENT MEDICATIONS: 1. Apixaban 5 mg p.o. twice daily. 2. Atorvastatin 80 mg p.o. daily. 3. Vitamin D3 2000 units p.o. daily. 4. Colchicine 0.6 mg p.o. p.r.n. 5. Finasteride 5 mg p.o. daily. 6. Furosemide 40 mg p.o. twice daily. 7. Hydralazine 25 mg p.o. twice daily. 8. Millry 10/325 one tablet p.o. q.6h. p.r.n. 9. Labetalol 200 mg p.o. twice daily. 10. Omeprazole 20 mg p.o. daily. 11. Prednisone 1.5 mg p.o. daily. 12. Flomax 0.4 mg p.o. daily. ALLERGIES: No known drug allergies. SOCIAL HISTORY: The patient is single and lives alone. The patient denies tobacco or alcohol use. PHYSICAL EXAMINATION: VITAL SIGNS: Temperature 98.0, respirations 20, pulse 86, blood pressure 147/78, and pulse-ox 97% on room air. GENERAL: The patient is a well-developed and well-nourished male, in no apparent distress. HEENT: Eyes, pupils are equal and responsive to light and accommodation. Extraocular movements intact. NECK: Supple without lymphadenopathy. CHEST: Lungs are clear to auscultation bilaterally without wheezes or rales. CARDIOVASCULAR: Regular rhythm and rate. S1 and S2 are normal without murmurs, rubs, or gallops. ABDOMEN: Soft, nondistended with positive bowel sounds. There is tenderness to palpation in the epigastric region. No evidence of rebound or guarding noted. EXTREMITIES: Negative for clubbing, cyanosis, or edema. RECTAL: Not performed. GENITAL: Not performed. NEUROLOGIC: Cranial nerves II through XII are grossly intact without focal deficits. Motor strength is 5/5 bilaterally intact. Deep tendon reflexes are 2+, plantar. LABORATORY STUDIES: WBC 10.0, hemoglobin 13.3, hematocrit 43.6, and platelets 149,000. Sodium 147, potassium 4.7, chloride 106, CO2 of 24, BUN 154, creatinine 7.3, and glucose 113. Total bilirubin 1.3. AST elevated at 109, ALT elevated at 124, and alkaline phosphatase elevated at 380. BNP elevated at 1320. Troponin 0.03. A CT scan of the chest, abdomen, and pelvis revealed extensive lymphadenopathy in the consistent with non-Hodgkin's lymphoma. There was right hydronephrosis secondary to distal ureteral obstruction secondary to enlarged pelvic lymph node. ASSESSMENT: This is an 89-year-old male with: 1. Hematemesis. 2. Upper gastrointestinal hemorrhage. 3. Epigastric pain. 4. Acute renal failure. 5. Hypertension. 6. Non-Hodgkin's lymphoma. 7. Elevated liver function tests. 8. Left hydronephrosis. 9. Hypercholesterolemia. 10. Gout. 11. Benign prostatic hypertrophy. 12. Gastroesophageal reflux disease. TREATMENT: 1. Hematemesis/upper gastrointestinal hemorrhage. A Gastroenterology consultation has been obtained with Dr. Sam Negron. The patient will require endoscopy during this hospitalization. We will follow recommendations of Gastroenterology. Differential includes gastritis versus gastric cancer secondary to non-Hodgkin's lymphoma. 2. Acute renal failure. A Nephrology consultation has been obtained with Dr. Thomas Ruby. We will follow recommendations of Nephrology. Renal failure may be secondary to obstruction of the distal ureter as above. 3. Non-Hodgkin's lymphoma. 4. Elevated liver function tests. As above. A Gastroenterology consultation has been obtained with Dr. Sam Negron. 5. Right hydronephrosis. As above. A Nephrology consultation has been obtained with Dr. Ruby. 6. Hypertension. Continue antihypertensive medications as above. 7. Hypercholesterolemia. 8. Gout. 9. Benign prostatic hypertrophy. 10. History of gastroesophageal reflux. Jorge Luis Javed M.D. DR: CADY JOB#: [id number] CC:
[2020-06-15] VITALS (7 sets, daily range): BP systolic 95–153; BP diastolic 31–72
[2020-06-15] MEDS: Aluminum Hydroxide Gel Susp 15ml ORAL SCH ×4 (04:00→21:10)
[2020-06-15 06:48] LABS: BASOPHILS % (AUTO) 0.9 % (0.0-2.0); EOSINOPHILS % (AUTO) 0.1 % (0.0-3.0); HEMATOCRIT 38.7 % (42.0-52.0); HEMOGLOBIN 11.8 G/DL (14.2-18.0); LYMPHOCYTES % (AUTO) 12.1 % (20.0-45.0); MEAN CORPUSCULAR VOLUME 85 FL (80-99); MONOCYTES % (AUTO) 11.5 % (1.0-10.0); NEUTROPHILS % (AUTO) 75.5 % (45.0-75.0); PLATELET COUNT 102 K/UL (150-450); RED BLOOD COUNT 4.53 M/UL (4.70-6.10); RED CELL DISTRIBUTION WIDTH 13.8 % (11.6-14.8); WHITE BLOOD COUNT 6.7 K/UL (4.8-10.8)
[2020-06-15 06:52] LABS: INR 1.2 (0.9-1.1)
[2020-06-15 07:47] LABS: % IRON SATURATION 21 % (15-50); IRON 46 ug/dL (50-175); TOTAL IRON BINDING CAPACITY 218 ug/dL (250-450)
[2020-06-15 07:54] LABS: ALANINE AMINOTRANSFERASE 114 U/L (12-78); ALBUMIN 2.6 G/DL (3.4-5.0); ALBUMIN/GLOBULIN RATIO 0.8 (1.0-2.7); ALKALINE PHOSPHATASE 306 U/L (46-116); AMYLASE 312 U/L (25-115); ANION GAP 16 mmol/L (5-15); ASPARTATE AMINO TRANSFERASE 110 U/L (15-37); BILIRUBIN,TOTAL 0.9 MG/DL (0.2-1.0); BLOOD UREA NITROGEN 138 mg/dL (7-18); CALCIUM 9.7 MG/DL (8.5-10.1); CARBON DIOXIDE 23 MMOL/L (21-32); CHLORIDE 115 MMOL/L (98-107); CHOLESTEROL 132 MG/DL (< 200); CREATININE 6.4 MG/DL (0.55-1.30); FERRITIN 189 NG/ML (8-388); HDL CHOLESTEROL 39 MG/DL (40-60); POTASSIUM 3.9 MMOL/L (3.5-5.1); SODIUM 154 MMOL/L (136-145); TRIGLYCERIDES 212 MG/DL (30-150)
[2020-06-15 08:01] LABS: CREATINE KINASE 69 U/L (26-308); GAMMA GLUTAMYL TRANSPEPTIDASE 692 U/L (5-85); PHOSPHORUS 6.8 MG/DL (2.5-4.9)
[2020-06-15] MEDS ORDERED: Lidocaine 1% 10mg/ml/Epi 0.005mg/ml 30ml vial INJ SCH (08:15)
[2020-06-15] MEDS: Docusate 100mg cap ORAL SCH ×3 (09:24→18:10)
[2020-06-15] MEDS: Pantoprazole Inj IVP SCH ×2 (09:26→21:10)
[2020-06-15] MEDS: D5NS 1,000 ML IV SCH (09:27)
--- NOTE | 2020-06-15 10:28 | General Progress Note ---
Assessment/Plan Problem List: (1) Obstructive nephropathy ICD Codes: N13.8 - Other obstructive and reflux uropathy SNOMED: 70011832 (2) Lymphoma ICD Codes: C85.90 - Non-Hodgkin lymphoma, unspecified, unspecified site SNOMED: 730165835 (3) Hydronephrosis ICD Codes: N13.30 - Unspecified hydronephrosis SNOMED: 18231342 (4) GI bleed ICD Codes: K92.2 - Gastrointestinal hemorrhage, unspecified SNOMED: 38407212 Qualifiers: Qualified Codes: K92.2 - Gastrointestinal hemorrhage, unspecified (5) Transaminitis ICD Codes: R74.0 - Nonspecific elevation of levels of transaminase and lactic acid dehydrogenase [LDH] SNOMED: 685938925, 682243033 (6) Lactic acid acidosis ICD Codes: E87.2 - Acidosis SNOMED: 67942384 (7) History of hypertension ICD Codes: Z86.79 - Personal history of other diseases of the circulatory system SNOMED: 675715071 Assessment/Plan: ppi fu H&H abd us hepatitis panel repeat lfts in am EGD canceled for today given acute renal failure will fu Subjective Allergies: Coded Allergies: No Known Allergies (Unverified , 06/14/20) Objective Last 24 Hour Vital Signs Date Time Temp Pulse Resp B/P (MAP) Pulse Ox O2 Delivery O2 Flow Rate FiO2 06/15/20 04:45 88 133/63 (86) 06/15/20 04:00 88 06/15/20 04:00 98.4 80 18 109/66 (80) 97 06/15/20 00:00 98.1 83 18 129/55 (79) 96 06/15/20 00:00 87 06/14/20 21:00 Room Air 06/14/20 20:00 98.5 84 18 125/57 (79) 96 06/14/20 20:00 87 06/14/20 16:00 98.0 85 20 149/76 (100) 97 06/14/20 15:53 78 06/14/20 13:40 Room Air 06/14/20 13:30 98.6 84 20 114/57 (76) 97 06/14/20 13:18 84 06/14/20 12:28 98.0 86 20 147/78 97 Room Air Intake and Output 06/14/20 06/15/20 19:00 07:00 Intake Total 2838.7 ml 1118.34 ml Output Total 100 ml 1100 ml Balance 2738.7 ml 18.34 ml Intake IV Total 2838.7 ml 1118.34 ml Output Urine Total 100 ml 1100 ml Laboratory Tests 06/15/20 04:00: Urine Eosinophils None seen 06/15/20 05:30: White Blood Count 6.7, Red Blood Count 4.53L, Hemoglobin 11.8L, Hematocrit 38.7L , Mean Corpuscular Volume 85, Mean Corpuscular Hemoglobin 26.0L, Mean Corpuscular Hemoglobin Concent 30.4L, Red Cell Distribution Width 13.8, Platelet Count 102L, Mean Platelet Volume 8.7, Neutrophils (%) (Auto) 75.5H, Lymphocytes (%) (Auto) 12.1L, Monocytes (%) (Auto) 11.5H, Eosinophils (%) (Auto ) 0.1, Basophils (%) (Auto) 0.9, Prothrombin Time 12.8H, Prothromb Time International Ratio 1.2H, Activated Partial Thromboplast Time 30, Sodium Level 154H, Potassium Level 3.9, Chloride Level 115H, Carbon Dioxide Level 23, Anion Gap 16H, Blood Urea Nitrogen 138H, Creatinine 6.4H, Estimat Glomerular Filtration Rate 8.3, Glucose Level 121H, Hemoglobin A1c 6.1H, Uric Acid 19.9H, Calcium Level 9.7, Phosphorus Level 6.8H, Magnesium Level 3.0H, Iron Level 46L, Total Iron Binding Capacity 218L, Percent Iron Saturation 21, Unsaturated Iron Binding 172, Ferritin 189, Total Bilirubin 0.9, Gamma Glutamyl Transpeptidase 692H, Aspartate Amino Transf (AST/SGOT) 110H, Alanine Aminotransferase (ALT/SGPT ) 114H, Alkaline Phosphatase 306H, Total Creatine Kinase 69, Troponin I 0.054, C -Reactive Protein, Quantitative 3.4H, Pro-B-Type Natriuretic Peptide 1081H, Total Protein 5.7L, Albumin 2.6L, Globulin 3.1, Albumin/Globulin Ratio 0.8L, Triglycerides Level 212H, Cholesterol Level 132, LDL Cholesterol 64, HDL Cholesterol 39L, Cholesterol/HDL Ratio 3.4, Amylase Level 312H, Lipase 775H, Prostate Specific Antigen 2.22, Vitamin B12 Level > 2000H, Folate 13.1, Thyroid Stimulating Hormone (TSH) 2.144, Hepatitis A IgM Antibody [Pending], Hepatitis B Surface Antigen [Pending], Hepatitis B Core IgM Antibody [Pending], Hepatitis C Antibody [Pending] Height (Feet): 6 Height (Inches): 2.00 Weight (Pounds): 197 General Appearance: no apparent distress EENT: normal ENT inspection Neck: supple Cardiovascular: normal rate Respiratory/Chest: decreased breath sounds Abdomen: hypoactive bowel sounds Sam Negron MD Jun 15, 2020 10:28
--- NOTE | 2020-06-15 10:43 | Diagnostic Imaging Report ---
EXAM: ULTRASOUND US ABD Complete CLINICAL HISTORY: Reason For Exam: ABD PAIN. History of lymphoma. COMPARISON: CT 06/14/2020 TECHNIQUE: Ultrasound examination of the abdomen includes grayscale images, and color and spectral doppler analysis. FINDINGS: Liver is diffusely heterogeneous. Spleen is within normal limits for size. There is abnormal wall thickening and perhaps wall calcifications noted of the gallbladder. Intraluminal sludge noted. Common bile duct measures 5 mm. Pancreas is marginally visualized. There are multiple cysts noted in both kidneys. Dominant lesion at the lower pole of the left kidney is complex with mural wall thickening and septations. Wall calcifications was noted of this lesion on prior CT. Aorta and cava are mostly obscured. IMPRESSION: HETEROGENEOUS LIVER. ABNORMAL WALL THICKENING AND WALL CALCIFICATIONS OF THE GALLBLADDER. QUESTION PORCELAIN GALLBLADDER. INTRALUMINAL SLUDGE NOTED BUT NO DEFINITE STONE. MULTIPLE CYSTS IN BOTH KIDNEYS. DOMINANT LESION AT THE LOWER POLE THE LEFT KIDNEY IS COMPLEX WITH MURAL WALL THICKENING AND SEPTATIONS. WALL CALCIFICATIONS WAS ALSO NOTED ON PRIOR CT.
--- NOTE | 2020-06-15 11:27 | Pulmonology Progress Note ---
Subjective ROS Limited/Unobtainable: No Interval Events: getting HD Constitutional: Reports: no symptoms HEENT: Repors: no symptoms Allergies: Coded Allergies: No Known Allergies (Unverified , 06/14/20) Objective Last 24 Hour Vital Signs Date Time Temp Pulse Resp B/P (MAP) Pulse Ox O2 Delivery O2 Flow Rate FiO2 06/15/20 07:42 89 06/15/20 04:45 88 133/63 (86) 06/15/20 04:00 88 06/15/20 04:00 98.4 80 18 109/66 (80) 97 06/15/20 00:00 98.1 83 18 129/55 (79) 96 06/15/20 00:00 87 06/14/20 21:00 Room Air 06/14/20 20:00 98.5 84 18 125/57 (79) 96 06/14/20 20:00 87 06/14/20 16:00 98.0 85 20 149/76 (100) 97 06/14/20 15:53 78 06/14/20 13:40 Room Air 06/14/20 13:30 98.6 84 20 114/57 (76) 97 06/14/20 13:18 84 06/14/20 12:28 98.0 86 20 147/78 97 Room Air Intake and Output 06/14/20 06/15/20 19:00 07:00 Intake Total 2838.7 ml 1118.34 ml Output Total 100 ml 1100 ml Balance 2738.7 ml 18.34 ml Intake IV Total 2838.7 ml 1118.34 ml Output Urine Total 100 ml 1100 ml General Appearance: WD/WN HEENT: normocephalic, atraumatic Respiratory: chest wall non-tender, lungs clear Cardiovascular: normal peripheral pulses, normal rate Abdomen: normal bowel sounds, soft, non tender, no scars Genitourinary: normal external genitalia Extremities: no cyanosis, no clubbing Skin: no ulcers 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 Laboratory Tests 06/15/20 04:00: Urine Eosinophils None seen 06/15/20 05:30: White Blood Count 6.7, Red Blood Count 4.53L, Hemoglobin 11.8L, Hematocrit 38.7L , Mean Corpuscular Volume 85, Mean Corpuscular Hemoglobin 26.0L, Mean Corpuscular Hemoglobin Concent 30.4L, Red Cell Distribution Width 13.8, Platelet Count 102L, Mean Platelet Volume 8.7, Neutrophils (%) (Auto) 75.5H, Lymphocytes (%) (Auto) 12.1L, Monocytes (%) (Auto) 11.5H, Eosinophils (%) (Auto ) 0.1, Basophils (%) (Auto) 0.9, Prothrombin Time 12.8H, Prothromb Time International Ratio 1.2H, Activated Partial Thromboplast Time 30, Sodium Level 154H, Potassium Level 3.9, Chloride Level 115H, Carbon Dioxide Level 23, Anion Gap 16H, Blood Urea Nitrogen 138H, Creatinine 6.4H, Estimat Glomerular Filtration Rate 8.3, Glucose Level 121H, Hemoglobin A1c 6.1H, Uric Acid 19.9H, Calcium Level 9.7, Phosphorus Level 6.8H, Magnesium Level 3.0H, Iron Level 46L, Total Iron Binding Capacity 218L, Percent Iron Saturation 21, Unsaturated Iron Binding 172, Ferritin 189, Total Bilirubin 0.9, Gamma Glutamyl Transpeptidase 692H, Aspartate Amino Transf (AST/SGOT) 110H, Alanine Aminotransferase (ALT/SGPT ) 114H, Alkaline Phosphatase 306H, Total Creatine Kinase 69, Troponin I 0.054, C -Reactive Protein, Quantitative 3.4H, Pro-B-Type Natriuretic Peptide 1081H, Total Protein 5.7L, Albumin 2.6L, Globulin 3.1, Albumin/Globulin Ratio 0.8L, Triglycerides Level 212H, Cholesterol Level 132, LDL Cholesterol 64, HDL Cholesterol 39L, Cholesterol/HDL Ratio 3.4, Amylase Level 312H, Lipase 775H, Prostate Specific Antigen 2.22, Vitamin B12 Level > 2000H, Folate 13.1, Thyroid Stimulating Hormone (TSH) 2.144, Hepatitis A IgM Antibody [Pending], Hepatitis B Surface Antigen [Pending], Hepatitis B Core IgM Antibody [Pending], Hepatitis C Antibody [Pending] Current Medications Medications (Trade) Dose Ordered Sig/Tasia Route PRN Reason Start Time Stop Time Status Last Admin Dose Admin Acetaminophen (Tylenol) 650 mg Q4H PRN ORAL fever (T>100.5F) 06/14/20 12:30 07/14/20 12:29 Aluminum Hydroxide (Amphojel) 1,920 mg Q6H ORAL 06/14/20 16:00 07/14/20 15:59 06/15/20 09:26 Dextrose 1,000 ml @ 100 mls/hr Q10H IV 06/15/20 10:07 07/15/20 10:06 06/15/20 10:59 Dextrose (Dextrose 50%) 25 ml Q30M PRN IV Hypoglycemia 06/14/20 12:30 09/12/20 12:29 Dextrose (Dextrose 50%) 50 ml Q30M PRN IV Hypoglycemia 06/14/20 12:30 09/12/20 12:29 Diphenhydramine HCl (Benadryl) 25 mg Q6H PRN ORAL Itching/Pruritis 06/14/20 12:30 07/14/20 12:29 Docusate Sodium (Colace) 100 mg THREE TIMES A DAY ORAL 06/14/20 18:00 07/14/20 17:59 06/15/20 09:24 Iopamidol (Isovue-300 100ml) 100 ml NOW PRN INJ radiology 06/14/20 12:45 Lidocaine HCl (Xylocaine 1% 30ml) 30 ml ONCE PRN INJ radiology procedure 06/14/20 12:45 09/12/20 12:44 Lidocaine/ Epinephrine (Lidocaine 1% 10mg/ml/Epi 0.005) 30 ml ONCE INJ 06/15/20 08:15 06/15/20 18:00 Ondansetron HCl (Zofran) 4 mg Q6H PRN IVP Nausea & Vomiting 06/14/20 12:30 07/14/20 12:29 Pantoprazole (Protonix) 40 mg EVERY 12 HOURS IVP 06/14/20 21:00 07/14/20 20:59 06/15/20 09:26 Temazepam (Restoril) 15 mg HSPRN PRN ORAL Insomnia 06/14/20 12:30 06/21/20 12:29 Assessment/Plan Problems: (1) Upper GI bleeding (2) YU (acute kidney injury) (3) Hydronephrosis (4) Obstructive nephropathy (5) Lymphoma (6) History of hypertension Assessment/Plan getting HD\ check electrolytes check electrolytes h2 blockers avoid heparin and NSAID avoid nephrotoxic meds. dvt prophylaxis. Pedro Luis Michaels MD Jun 15, 2020 11:27
--- NOTE | 2020-06-15 13:18 | Surgery Progress Note ---
Surgery Progress Note Subjective Additional Comments hd cath placed Objective Last 24 Hour Vital Signs Date Time Temp Pulse Resp B/P (MAP) Pulse Ox O2 Delivery O2 Flow Rate FiO2 06/15/20 09:00 Room Air 06/15/20 07:42 89 06/15/20 04:45 88 133/63 (86) 06/15/20 04:00 88 06/15/20 04:00 98.4 80 18 109/66 (80) 97 06/15/20 00:00 98.1 83 18 129/55 (79) 96 06/15/20 00:00 87 06/14/20 21:00 Room Air 06/14/20 20:00 98.5 84 18 125/57 (79) 96 06/14/20 20:00 87 06/14/20 16:00 98.0 85 20 149/76 (100) 97 06/14/20 15:53 78 06/14/20 13:40 Room Air 06/14/20 13:30 98.6 84 20 114/57 (76) 97 06/14/20 13:18 84 I&O Intake and Output 06/14/20 06/15/20 19:00 07:00 Intake Total 2838.7 ml 1118.34 ml Output Total 100 ml 1100 ml Balance 2738.7 ml 18.34 ml Intake IV Total 2838.7 ml 1118.34 ml Output Urine Total 100 ml 1100 ml Cardiovascular: RSR Respiratory: clear Abdomen: soft, flat Extremities: no edema, no tenderness, no cyanosis Laboratory Tests Test 06/15/20 04:00 06/15/20 05:30 Urine Eosinophils None seen (NONE SEEN) White Blood Count 6.7 K/UL (4.8-10.8) Red Blood Count 4.53 M/UL (4.70-6.10) L Hemoglobin 11.8 G/DL (14.2-18.0) L Hematocrit 38.7 % (42.0-52.0) L Mean Corpuscular Volume 85 FL (80-99) Mean Corpuscular Hemoglobin 26.0 PG (27.0-31.0) L Mean Corpuscular Hemoglobin Concent 30.4 G/DL (32.0-36.0) L Red Cell Distribution Width 13.8 % (11.6-14.8) Platelet Count 102 K/UL (150-450) L Mean Platelet Volume 8.7 FL (6.5-10.1) Neutrophils (%) (Auto) 75.5 % (45.0-75.0) H Lymphocytes (%) (Auto) 12.1 % (20.0-45.0) L Monocytes (%) (Auto) 11.5 % (1.0-10.0) H Eosinophils (%) (Auto) 0.1 % (0.0-3.0) Basophils (%) (Auto) 0.9 % (0.0-2.0) Prothrombin Time 12.8 SEC (9.30-11.50) H Prothromb Time International Ratio 1.2 (0.9-1.1) H Activated Partial Thromboplast Time 30 SEC (23-33) Sodium Level 154 MMOL/L (136-145) H Potassium Level 3.9 MMOL/L (3.5-5.1) Chloride Level 115 MMOL/L (98-107) H Carbon Dioxide Level 23 MMOL/L (21-32) Anion Gap 16 mmol/L (5-15) H Blood Urea Nitrogen 138 mg/dL (7-18) H Creatinine 6.4 MG/DL (0.55-1.30) H Estimat Glomerular Filtration Rate 8.3 mL/min (>60) Glucose Level 121 MG/DL (74-106) H Hemoglobin A1c 6.1 % (4.3-6.0) H Uric Acid 19.9 MG/DL (2.6-7.2) H Calcium Level 9.7 MG/DL (8.5-10.1) Phosphorus Level 6.8 MG/DL (2.5-4.9) H Magnesium Level 3.0 MG/DL (1.8-2.4) H Iron Level 46 ug/dL (50-175) L Total Iron Binding Capacity 218 ug/dL (250-450) L Percent Iron Saturation 21 % (15-50) Unsaturated Iron Binding 172 ug/dL (112-346) Ferritin 189 NG/ML (8-388) Total Bilirubin 0.9 MG/DL (0.2-1.0) Gamma Glutamyl Transpeptidase 692 U/L (5-85) H Aspartate Amino Transf (AST/SGOT) 110 U/L (15-37) H Alanine Aminotransferase (ALT/SGPT) 114 U/L (12-78) H Alkaline Phosphatase 306 U/L (46-116) H Total Creatine Kinase 69 U/L (26-308) Troponin I 0.054 ng/mL (0.000-0.056) C-Reactive Protein, Quantitative 3.4 mg/dL (0.00-0.90) H Pro-B-Type Natriuretic Peptide 1081 pg/mL (0-125) H Total Protein 5.7 G/DL (6.4-8.2) L Albumin 2.6 G/DL (3.4-5.0) L Globulin 3.1 g/dL Albumin/Globulin Ratio 0.8 (1.0-2.7) L Triglycerides Level 212 MG/DL (30-150) H Cholesterol Level 132 MG/DL (< 200) LDL Cholesterol 64 mg/dL (<100) HDL Cholesterol 39 MG/DL (40-60) L Cholesterol/HDL Ratio 3.4 (3.3-4.4) Amylase Level 312 U/L (25-115) H Lipase 775 U/L (73-393) H Prostate Specific Antigen 2.22 ng/mL (0.13-4.0) Vitamin B12 Level > 2000 PG/ML (193-986) H Folate 13.1 NG/ML (8.6-58.9) Thyroid Stimulating Hormone (TSH) 2.144 uiU/mL (0.358-3.740) Hepatitis A IgM Antibody Pending Hepatitis B Surface Antigen Pending Hepatitis B Core IgM Antibody Pending Hepatitis C Antibody Pending Plan Problems: (1) History of hypertension (2) Upper GI bleeding (3) Lactic acid acidosis (4) Transaminitis Assessment & Plan: Liver is diffusely heterogeneous. Spleen is within normal limits for size. There is abnormal wall thickening and perhaps wall calcifications noted of the gallbladder. Intraluminal sludge noted. Common bile duct measures 5 mm. Pancreas is marginally visualized. There are multiple cysts noted in both kidneys. Dominant lesion at the lower pole of the left kidney is complex with mural wall thickening and septations. Wall calcifications was noted of this lesion on prior CT. Aorta and cava are mostly obscured. (5) YU (acute kidney injury) Assessment & Plan: HD cath placed 06/15 plan for HD (6) GI bleed Assessment & Plan: Chest: The upper lobes and upper portions of the lower lobes demonstrate mild panlobular emphysema. A few small bullae are seen in the right upper lobe. A few areas of scarring are seen in the anterior inferior right upper lobe, within the right middle lobe, within the left lower lobe and inferior lingula. A calcified granuloma is seen at the left lung base and there is calcification within some of the scarring in the right middle lobe. No infiltrates, effusions, masses, nodules, or congestion demonstrated. A mass, presumably an enlarged lymph node, there is seen anterior to the ascending thoracic aorta. This measures 3.2 cm in diameter. No other mediastinal or hilar mass or adenopathy demonstrated. The heart size is normal. No pericardial effusion. There is very mild thickening of the distal esophageal wall and possibly a small hiatal hernia. The included thyroid is unremarkable. No axillary or chest wall mass or adenopathy. There is very mild bilateral gynecomastia. The bones are unremarkable except for mild degenerative spondylosis changes. The ascending thoracic aorta is ectatic but not frankly aneurysmal Abdomen pelvis: Lack of enteric contrast limits assessment of the GI tract. There is colonic diverticulosis. The appendix is normal. No small bowel distention. No free or loculated intraperitoneal gas or fluid is evident. There is extensive abdominal and pelvic lymphadenopathy. Enlarged nodes are seen anterior superior to the left hepatic lobe, within the lesser sac, within the reginaldo hepatis and within the retroperitoneum. There are enlarged bilateral iliac chain nodes. Enlarged nodes are also seen centrally in the pelvis. There is a mass which appears to be with in the wall of the dome of of the bladder the and extending exophytically from it. There is a mass which appears intimately related to the colon wall. The gallbladder is markedly abnormal, demonstrates what appear to be multiple areas of hyperattenuating mural thickening. No definite gallstones. No biliary ductal dilatation. Lack of IV contrast limits assessment of the solid organs. The liver demonstrates a subcentimeter low-attenuation lesion in segment 4A which is too small to characterize. The pancreas demonstrates what appears to be an area of enlargement at the body tail junction which appears to be intrinsic to the pancreatic parenchyma. Immediately inferior to this is an enlarged node. The spleen and adrenals are unremarkable. The kidneys demonstrate multiple fluid attenuation cysts as well as numerous hyperattenuating lesions. Most of the hyperattenuating lesions demonstrate Hounsfield numbers over 70, consistent with hyperdense cysts, but others demonstrate nonspecific attenuation. In addition, there is a large mass measuring 5 cm within the central left kidney which is isoattenuating to normal parenchyma. There is a complex cyst in the lower pole of left kidney which demonstrates somewhat thick hawkins, mural calcifications, and somewhat thick mural septa. The right kidney is mildly to moderately hydronephrotic, and there is hydroureter extending to just above the bladder, where an enlarged node is noted. Distal to this enlarged node, the ureter is normal in caliber. There are no renal or ureteral calculi. No left hydronephrosis or hydroureter The prostate is enlarged, measures 5.2 cm transverse diameter. IMPRESSION: Extensive lymphadenopathy, as described in detail above. Predominantly within the abdomen and pelvis, but there is also an enlarged mediastinal node. This is in keeping with stated clinical history of lymphoma. No definite acute thoracic abnormality Right hydronephrosis and hydroureter, apparently due to distal ureteral obstruction by an enlarged pelvic node Markedly abnormal and unusual appearing gallbladder wall, with areas of hyperattenuating mural thickening. Further investigation with sonography should be considered Intermediate attenuation 5 cm interpolar region left renal mass. While possibly a proteinaceous cyst, the possibility of solid neoplasm should also be considered. Correlate with clinical history, consider sonography to better characterize as clinically indicated Multiple bilateral fluid attenuation and hyperattenuating renal cysts. Other slightly less hyperattenuating renal lesions are indeterminate but most likely represent hyperattenuating/proteinaceous cysts as well COPD changes and areas of scarring, as described Mild distal esophageal wall thickening and possibly a small hiatal hernia Prostatomegaly Other findings as noted, including degenerative spondylosis, old granulomatous disease, mild gynecomastia (7) Hydronephrosis (8) Lymphoma (9) Obstructive nephropathy Best Kam Jun 15, 2020 13:18
--- NOTE | 2020-06-15 13:20 | Nephrology Progress Note ---
Assessment/Plan Problem List: (1) YU (acute kidney injury) (2) Obstructive nephropathy (3) Hydronephrosis (4) Lymphoma (5) GI bleed Assessment Acute renal failure Possible underlying chronic kidney failure Lymphoma Hypertension Upper GI bleed Plan Farr catheter in place Will arrange for hemodialysis GI, to be done soon today Dialysis catheter is placed No need for nephrostomy at this time since the blockage is unilateral Kidney ultrasound Phosphorus binders IV Protonix P.o. Amphojel Keep the blood pressure in check Subjective ROS Limited/Unobtainable: No Constitutional: Reports: malaise Objective Objective Last 24 Hour Vital Signs Date Time Temp Pulse Resp B/P (MAP) Pulse Ox O2 Delivery O2 Flow Rate FiO2 06/15/20 12:00 83 26 101/31 (54) 100 06/15/20 09:00 Room Air 06/15/20 07:42 89 06/15/20 04:45 88 133/63 (86) 06/15/20 04:00 88 06/15/20 04:00 98.4 80 18 109/66 (80) 97 06/15/20 00:00 98.1 83 18 129/55 (79) 96 06/15/20 00:00 87 06/14/20 21:00 Room Air 06/14/20 20:00 98.5 84 18 125/57 (79) 96 06/14/20 20:00 87 06/14/20 16:00 98.0 85 20 149/76 (100) 97 06/14/20 15:53 78 06/14/20 13:40 Room Air 06/14/20 13:30 98.6 84 20 114/57 (76) 97 06/14/20 13:18 84 Intake and Output 06/14/20 06/15/20 19:00 07:00 Intake Total 2838.7 ml 1118.34 ml Output Total 100 ml 1100 ml Balance 2738.7 ml 18.34 ml Intake IV Total 2838.7 ml 1118.34 ml Output Urine Total 100 ml 1100 ml Current Medications Medications (Trade) Dose Ordered Sig/Tasia Route PRN Reason Start Time Stop Time Status Last Admin Dose Admin Acetaminophen (Tylenol) 650 mg Q4H PRN ORAL fever (T>100.5F) 06/14/20 12:30 07/14/20 12:29 Aluminum Hydroxide (Amphojel) 1,920 mg Q6H ORAL 06/14/20 16:00 07/14/20 15:59 06/15/20 09:26 Dextrose 1,000 ml @ 100 mls/hr Q10H IV 06/15/20 10:07 07/15/20 10:06 06/15/20 10:59 Dextrose (Dextrose 50%) 25 ml Q30M PRN IV Hypoglycemia 06/14/20 12:30 09/12/20 12:29 Dextrose (Dextrose 50%) 50 ml Q30M PRN IV Hypoglycemia 06/14/20 12:30 09/12/20 12:29 Diphenhydramine HCl (Benadryl) 25 mg Q6H PRN ORAL Itching/Pruritis 06/14/20 12:30 07/14/20 12:29 Docusate Sodium (Colace) 100 mg THREE TIMES A DAY ORAL 06/14/20 18:00 07/14/20 17:59 06/15/20 09:24 Iopamidol (Isovue-300 100ml) 100 ml NOW PRN INJ radiology 06/14/20 12:45 Lidocaine HCl (Xylocaine 1% 30ml) 30 ml ONCE PRN INJ radiology procedure 06/14/20 12:45 09/12/20 12:44 Lidocaine/ Epinephrine (Lidocaine 1% 10mg/ml/Epi 0.005) 30 ml ONCE INJ 06/15/20 08:15 06/15/20 18:00 Ondansetron HCl (Zofran) 4 mg Q6H PRN IVP Nausea & Vomiting 06/14/20 12:30 07/14/20 12:29 Pantoprazole (Protonix) 40 mg EVERY 12 HOURS IVP 06/14/20 21:00 07/14/20 20:59 06/15/20 09:26 Temazepam (Restoril) 15 mg HSPRN PRN ORAL Insomnia 06/14/20 12:30 06/21/20 12:29 Laboratory Tests 06/15/20 04:00: Urine Eosinophils None seen 06/15/20 05:30: White Blood Count 6.7, Red Blood Count 4.53L, Hemoglobin 11.8L, Hematocrit 38.7L , Mean Corpuscular Volume 85, Mean Corpuscular Hemoglobin 26.0L, Mean Corpuscular Hemoglobin Concent 30.4L, Red Cell Distribution Width 13.8, Platelet Count 102L, Mean Platelet Volume 8.7, Neutrophils (%) (Auto) 75.5H, Lymphocytes (%) (Auto) 12.1L, Monocytes (%) (Auto) 11.5H, Eosinophils (%) (Auto ) 0.1, Basophils (%) (Auto) 0.9, Prothrombin Time 12.8H, Prothromb Time International Ratio 1.2H, Activated Partial Thromboplast Time 30, Sodium Level 154H, Potassium Level 3.9, Chloride Level 115H, Carbon Dioxide Level 23, Anion Gap 16H, Blood Urea Nitrogen 138H, Creatinine 6.4H, Estimat Glomerular Filtration Rate 8.3, Glucose Level 121H, Hemoglobin A1c 6.1H, Uric Acid 19.9H, Calcium Level 9.7, Phosphorus Level 6.8H, Magnesium Level 3.0H, Iron Level 46L, Total Iron Binding Capacity 218L, Percent Iron Saturation 21, Unsaturated Iron Binding 172, Ferritin 189, Total Bilirubin 0.9, Gamma Glutamyl Transpeptidase 692H, Aspartate Amino Transf (AST/SGOT) 110H, Alanine Aminotransferase (ALT/SGPT ) 114H, Alkaline Phosphatase 306H, Total Creatine Kinase 69, Troponin I 0.054, C -Reactive Protein, Quantitative 3.4H, Pro-B-Type Natriuretic Peptide 1081H, Total Protein 5.7L, Albumin 2.6L, Globulin 3.1, Albumin/Globulin Ratio 0.8L, Triglycerides Level 212H, Cholesterol Level 132, LDL Cholesterol 64, HDL Cholesterol 39L, Cholesterol/HDL Ratio 3.4, Amylase Level 312H, Lipase 775H, Prostate Specific Antigen 2.22, Vitamin B12 Level > 2000H, Folate 13.1, Thyroid Stimulating Hormone (TSH) 2.144, Hepatitis A IgM Antibody [Pending], Hepatitis B Surface Antigen [Pending], Hepatitis B Core IgM Antibody [Pending], Hepatitis C Antibody [Pending] Height (Feet): 6 Height (Inches): 2.00 Weight (Pounds): 197 General Appearance: no apparent distress, lethargic Cardiovascular: normal rate - Rate in 80s Respiratory/Chest: decreased breath sounds Abdomen: soft, distended Thomas Ruby MD Jun 15, 2020 13:20
--- NOTE | 2020-06-15 13:20 | Operative Note - PDOC ---
Operative Note Operative Note Date of Operation/Procedure: Jun 15, 2020 Pre-op Diagnosis: Acute renal insufficiency Uremia Procedure: Right femoral temporary hemodialysis catheter insertion Post-op Diagnosis: same as pre-op Surgeon: Best Kam MD Anesthesia: local Specimen: none Complications: none Condition: stable Estimated Blood Loss: minimal Drains: none Implant(s) used?: No Indications for Procedure 89-year-old male with uremic renal insufficiency requiring urgent dialysis. Does not have dialysis access and has not had dialysis in the past. Temporary venous access indicated recommended consent obtained from patient Description of Procedure Patient was made comfortable the bedside in supine position. The right groin is prepped draped and sent surgical fashion. Anatomic landmarks identified. Local anesthetic infiltrated. Right femoral vein was cannulated on for stick without complication good venous flow identified guidewire placed over needle needle removed. Small skin incision made over the around the guidewire and dilators used. A temporal hemodialysis catheter was inserted directly over the guidewire without complication guidewire removed and discarded. All ports flushed and aspirated without complication. Line sutured in place dressings applied patient taught procedure well and plan for hemodialysis today. Thank you Best Kam Jun 15, 2020 13:20
--- NOTE | 2020-06-15 18:24 | Internal Med Progress Note ---
Subjective Date of Service: Jun 15, 2020 Physician Name TeganJorge Luis Attending Physician Fabien Bailey MD Current Medications Medications (Trade) Dose Ordered Sig/Tasia Route PRN Reason Start Time Stop Time Status Last Admin Dose Admin Acetaminophen (Tylenol) 650 mg Q4H PRN ORAL fever (T>100.5F) 06/14/20 12:30 07/14/20 12:29 Aluminum Hydroxide (Amphojel) 1,920 mg Q6H ORAL 06/14/20 16:00 07/14/20 15:59 06/15/20 16:13 Dextrose 1,000 ml @ 100 mls/hr Q10H IV 06/15/20 10:07 07/15/20 10:06 06/15/20 10:59 Dextrose (Dextrose 50%) 25 ml Q30M PRN IV Hypoglycemia 06/14/20 12:30 09/12/20 12:29 Dextrose (Dextrose 50%) 50 ml Q30M PRN IV Hypoglycemia 06/14/20 12:30 09/12/20 12:29 Diphenhydramine HCl (Benadryl) 25 mg Q6H PRN ORAL Itching/Pruritis 06/14/20 12:30 07/14/20 12:29 Docusate Sodium (Colace) 100 mg THREE TIMES A DAY ORAL 06/14/20 18:00 07/14/20 17:59 06/15/20 18:10 Iopamidol (Isovue-300 100ml) 100 ml NOW PRN INJ radiology 06/14/20 12:45 Lidocaine HCl (Xylocaine 1% 30ml) 30 ml ONCE PRN INJ radiology procedure 06/14/20 12:45 09/12/20 12:44 Ondansetron HCl (Zofran) 4 mg Q6H PRN IVP Nausea & Vomiting 06/14/20 12:30 07/14/20 12:29 Pantoprazole (Protonix) 40 mg EVERY 12 HOURS IVP 06/14/20 21:00 07/14/20 20:59 06/15/20 09:26 Temazepam (Restoril) 15 mg HSPRN PRN ORAL Insomnia 06/14/20 12:30 06/21/20 12:29 Allergies: Coded Allergies: No Known Allergies (Unverified , 06/14/20) ROS Limited/Unobtainable: No Constitutional: Reports: no symptoms HEENT: Reports: no symptoms Cardiovascular: Reports: no symptoms Respiratory: Reports: no symptoms Gastrointestinal/Abdominal: Reports: abdominal pain Genitourinary: Reports: no symptoms Neurologic/Psychiatric: Reports: no symptoms Subjective 89 YO M with history of Non Hodgkin's lymphoma admitted for hematemesis. Now Upper GI bleed and renal failure. Cover for Int Mak-Dr Bailey. Endoscopy postponed due to renal failure Objective Last Vital Signs Date Time Temp Pulse Resp B/P (MAP) Pulse Ox O2 Delivery O2 Flow Rate FiO2 06/15/20 16:00 97.9 101 20 95/47 (63) 96 06/15/20 09:00 Room Air Laboratory Tests Test 06/15/20 04:00 06/15/20 05:30 06/15/20 05:50 Urine Eosinophils None seen (NONE SEEN) White Blood Count 6.7 K/UL (4.8-10.8) Red Blood Count 4.53 M/UL (4.70-6.10) L Hemoglobin 11.8 G/DL (14.2-18.0) L Hematocrit 38.7 % (42.0-52.0) L Mean Corpuscular Volume 85 FL (80-99) Mean Corpuscular Hemoglobin 26.0 PG (27.0-31.0) L Mean Corpuscular Hemoglobin Concent 30.4 G/DL (32.0-36.0) L Red Cell Distribution Width 13.8 % (11.6-14.8) Platelet Count 102 K/UL (150-450) L Mean Platelet Volume 8.7 FL (6.5-10.1) Neutrophils (%) (Auto) 75.5 % (45.0-75.0) H Lymphocytes (%) (Auto) 12.1 % (20.0-45.0) L Monocytes (%) (Auto) 11.5 % (1.0-10.0) H Eosinophils (%) (Auto) 0.1 % (0.0-3.0) Basophils (%) (Auto) 0.9 % (0.0-2.0) Prothrombin Time 12.8 SEC (9.30-11.50) H Prothromb Time International Ratio 1.2 (0.9-1.1) H Activated Partial Thromboplast Time 30 SEC (23-33) Sodium Level 154 MMOL/L (136-145) H Potassium Level 3.9 MMOL/L (3.5-5.1) Chloride Level 115 MMOL/L (98-107) H Carbon Dioxide Level 23 MMOL/L (21-32) Anion Gap 16 mmol/L (5-15) H Blood Urea Nitrogen 138 mg/dL (7-18) H Creatinine 6.4 MG/DL (0.55-1.30) H Estimat Glomerular Filtration Rate 8.3 mL/min (>60) Glucose Level 121 MG/DL (74-106) H Hemoglobin A1c 6.1 % (4.3-6.0) H Uric Acid 19.9 MG/DL (2.6-7.2) H Calcium Level 9.7 MG/DL (8.5-10.1) Phosphorus Level 6.8 MG/DL (2.5-4.9) H Magnesium Level 3.0 MG/DL (1.8-2.4) H Iron Level 46 ug/dL (50-175) L Total Iron Binding Capacity 218 ug/dL (250-450) L Percent Iron Saturation 21 % (15-50) Unsaturated Iron Binding 172 ug/dL (112-346) Ferritin 189 NG/ML (8-388) Total Bilirubin 0.9 MG/DL (0.2-1.0) Gamma Glutamyl Transpeptidase 692 U/L (5-85) H Aspartate Amino Transf (AST/SGOT) 110 U/L (15-37) H Alanine Aminotransferase (ALT/SGPT) 114 U/L (12-78) H Alkaline Phosphatase 306 U/L (46-116) H Total Creatine Kinase 69 U/L (26-308) Troponin I 0.054 ng/mL (0.000-0.056) C-Reactive Protein, Quantitative 3.4 mg/dL (0.00-0.90) H Pro-B-Type Natriuretic Peptide 1081 pg/mL (0-125) H Total Protein 5.7 G/DL (6.4-8.2) L Albumin 2.6 G/DL (3.4-5.0) L Globulin 3.1 g/dL Albumin/Globulin Ratio 0.8 (1.0-2.7) L Triglycerides Level 212 MG/DL (30-150) H Cholesterol Level 132 MG/DL (< 200) LDL Cholesterol 64 mg/dL (<100) HDL Cholesterol 39 MG/DL (40-60) L Cholesterol/HDL Ratio 3.4 (3.3-4.4) Amylase Level 312 U/L (25-115) H Lipase 775 U/L (73-393) H Prostate Specific Antigen 2.22 ng/mL (0.13-4.0) Vitamin B12 Level > 2000 PG/ML (193-986) H Folate 13.1 NG/ML (8.6-58.9) Thyroid Stimulating Hormone (TSH) 2.144 uiU/mL (0.358-3.740) Hepatitis A IgM Antibody Pending Hepatitis B Surface Antigen Pending Pending Hepatitis B Core IgM Antibody Pending Hepatitis C Antibody Pending Intake and Output 06/14/20 06/15/20 19:00 07:00 Intake Total 2838.7 ml 1118.34 ml Output Total 100 ml 1100 ml Balance 2738.7 ml 18.34 ml Intake IV Total 2838.7 ml 1118.34 ml Output Urine Total 100 ml 1100 ml Objective PHYSICAL EXAMINATION: GENERAL: The patient is a well-developed and well-nourished male, in no apparent distress. HEENT: Eyes, pupils are equal and responsive to light and accommodation. Extraocular movements intact. NECK: Supple without lymphadenopathy. CHEST: Lungs are clear to auscultation bilaterally without wheezes or rales. CARDIOVASCULAR: Regular rhythm and rate. S1 and S2 are normal without murmurs, rubs, or gallops. ABDOMEN: Soft, nondistended with positive bowel sounds. There is tenderness to palpation in the epigastric region. No evidence of rebound or guarding noted. EXTREMITIES: Negative for clubbing, cyanosis, or edema. RECTAL: Not performed. GENITAL: Not performed. NEUROLOGIC: Cranial nerves II through XII are grossly intact without focal deficits. Motor strength is 5/5 bilaterally intact. Deep tendon reflexes are 2+, plantar. Assessment/Plan Assessment/Plan ASSESSMENT: This is an 89-year-old male with: 1. Hematemesis. 2. Upper gastrointestinal hemorrhage. 3. Epigastric pain. 4. Acute renal failure. 5. Hypertension. 6. Non-Hodgkin's lymphoma. 7. Elevated liver function tests. 8. Left hydronephrosis. 9. Hypercholesterolemia. 10. Gout. 11. Benign prostatic hypertrophy. 12. Gastroesophageal reflux disease. TREATMENT: 1. Hematemesis/upper gastrointestinal hemorrhage. A Gastroenterology consultation has been obtained with Dr. Sam Negron. Endoscopy scheduled 06/15/20 postponed due to renal failure. We will follow recommendations of Gastroenterology. Differential includes gastritis versus gastric cancer secondary to non-Hodgkin's lymphoma. 2. Acute renal failure. A Nephrology consultation has been obtained with Dr. Thomas Ruby. Hemodialysis 06/15/20. We will follow recommendations of Nephrology. Renal failure may be secondary to obstruction of the distal ureter as above. 3. Non-Hodgkin's lymphoma. 4. Elevated liver function tests. A Gastroenterology consultation has been obtained with Dr. Sam Negron. 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 Surgery=Dr Kam 5. Right hydronephrosis. A Nephrology consultation has been obtained with Dr. Ruby. 6. Hypertension. Continue antihypertensive medications as above. 7. Hypercholesterolemia. 8. Gout. 9. Benign prostatic hypertrophy. 10. History of gastroesophageal reflux. Jorge Luis Javed MD Jun 15, 2020 18:24
[2020-06-16] VITALS: BP 102/50
[2020-06-16] MEDS: Aluminum Hydroxide Gel Susp 15ml ORAL SCH ×3 (03:20→17:32)
[2020-06-16 04:00] VITALS: BP 140/56
[2020-06-16 07:09] LABS: HEMATOCRIT 36.5 % (42.0-52.0); HEMOGLOBIN 11.3 G/DL (14.2-18.0); MEAN CORPUSCULAR VOLUME 85 FL (80-99); PLATELET COUNT 57 K/UL (150-450); RED BLOOD COUNT 4.31 M/UL (4.70-6.10); RED CELL DISTRIBUTION WIDTH 14.2 % (11.6-14.8); WHITE BLOOD COUNT 8.4 K/UL (4.8-10.8)
[2020-06-16 07:18] LABS: PHOSPHORUS 5.3 MG/DL (2.5-4.9)
[2020-06-16 07:19] LABS: ALANINE AMINOTRANSFERASE 94 U/L (12-78); ALBUMIN 2.3 G/DL (3.4-5.0); ALBUMIN/GLOBULIN RATIO 0.8 (1.0-2.7); ALKALINE PHOSPHATASE 281 U/L (46-116); AMYLASE 269 U/L (25-115); ANION GAP 12 mmol/L (5-15); ASPARTATE AMINO TRANSFERASE 142 U/L (15-37); BILIRUBIN,TOTAL 1.3 MG/DL (0.2-1.0); BLOOD UREA NITROGEN 88 mg/dL (7-18); CALCIUM 9.5 MG/DL (8.5-10.1); CARBON DIOXIDE 27 MMOL/L (21-32); CHLORIDE 106 MMOL/L (98-107); CREATININE 4.8 MG/DL (0.55-1.30); POTASSIUM 3.5 MMOL/L (3.5-5.1); SODIUM 145 MMOL/L (136-145)
[2020-06-16 07:21] LABS: BILIRUBIN,DIRECT 0.3 MG/DL (0.0-0.3)
[2020-06-16 08:00] VITALS: BP 116/66
[2020-06-16] MEDS: Docusate 100mg cap ORAL SCH ×3 (09:27→17:31)
[2020-06-16] MEDS: Pantoprazole Inj IVP SCH (09:27)
--- NOTE | 2020-06-16 09:57 | Nephrology Progress Note ---
Assessment/Plan Problem List: (1) YU (acute kidney injury) (2) Obstructive nephropathy (3) Hydronephrosis (4) Lymphoma (5) GI bleed (6) High serum amylase (7) Transaminitis Assessment Acute renal failure Possible underlying chronic kidney failure Lymphoma Hypertension Upper GI bleed Plan June 16: Patient was dialyzed yesterday. Labs reviewed. Lipase and liver function tests are elevated. Suggest urology advice. Kidney ultrasound reviewed. 1 dose of Zaroxolyn given. Next hemodialysis based on how the renal parameters behave. Discussed with RN. Farr catheter in place Will arrange for hemodialysis GI, to be done soon today Dialysis catheter is placed No need for nephrostomy at this time since the blockage is unilateral Kidney ultrasound Phosphorus binders IV Protonix P.o. Amphojel Keep the blood pressure in check Subjective ROS Limited/Unobtainable: No Constitutional: Reports: other - Feels stronger Objective Objective Last 24 Hour Vital Signs Date Time Temp Pulse Resp B/P (MAP) Pulse Ox O2 Delivery O2 Flow Rate FiO2 06/16/20 08:00 98.8 90 18 116/66 (83) 99 06/16/20 04:00 82 06/16/20 04:00 98.0 74 20 140/56 (84) 94 06/16/20 00:00 98.3 62 20 102/50 (67) 95 06/16/20 00:00 88 06/15/20 21:00 Nasal Cannula 2.0 06/15/20 20:20 118/52 (74) 06/15/20 20:00 99.0 55 22 110/58 (75) 95 06/15/20 20:00 102 06/15/20 16:00 97.9 101 20 95/47 (63) 96 06/15/20 15:26 97 06/15/20 12:00 83 26 101/31 (54) 100 06/15/20 11:43 107 Intake and Output 06/15/20 06/16/20 19:00 07:00 Intake Total 1000 ml 1300 ml Output Total 450 ml 400 ml Balance 550 ml 900 ml Intake Oral 100 ml IV Total 1000 ml Other 1200 ml Output Urine Total 450 ml 400 ml Hemodialysis UF 0 ml # Voids 1 Laboratory Tests 06/16/20 03:40: Urine Eosinophils None seen 06/16/20 05:37: White Blood Count 8.4, Red Blood Count 4.31L, Hemoglobin 11.3L, Hematocrit 36.5L , Mean Corpuscular Volume 85, Mean Corpuscular Hemoglobin 26.1L, Mean Corpuscular Hemoglobin Concent 30.8L, Red Cell Distribution Width 14.2, Platelet Count 57L, Mean Platelet Volume 11.1H, Neutrophils (%) (Auto) , Lymphocytes (%) (Auto) , Monocytes (%) (Auto) , Eosinophils (%) (Auto) , Basophils (%) (Auto) , Neutrophils % (Manual) [Pending], Lymphocytes % (Manual) [Pending], Platelet Estimate [Pending], Platelet Morphology [Pending], Erythrocyte Sedimentation Rate 47H, Sodium Level 145, Potassium Level 3.5, Chloride Level 106, Carbon Dioxide Level 27, Anion Gap 12, Blood Urea Nitrogen 88H, Creatinine 4.8H, Estimat Glomerular Filtration Rate 11.5, Glucose Level 104 , Calcium Level 9.5, Phosphorus Level 5.3H, Magnesium Level 2.6H, Total Bilirubin 1.3H, Direct Bilirubin 0.3, Aspartate Amino Transf (AST/SGOT) 142H, Alanine Aminotransferase (ALT/SGPT) 94H, Alkaline Phosphatase 281H, C-Reactive Protein, Quantitative 5.7H, Total Protein 5.1L, Albumin 2.3L, Globulin 2.8, Albumin/Globulin Ratio 0.8L, Amylase Level 269H, Lipase 598H Height (Feet): 6 Height (Inches): 2.00 Weight (Pounds): 197 General Appearance: no apparent distress Cardiovascular: other - Variable rate Respiratory/Chest: decreased breath sounds Abdomen: soft, distended Genitourinary/Rectal: other - Farr catheter in place Thomas Ruby MD Jun 16, 2020 09:57
--- NOTE | 2020-06-16 10:06 | CDS Physician Query ---
Clarification is required for compliance, coding accuracy, and to reflect severity of illness for this patient Dear Dr. Jorge Luis Javed M.D. Date: 06/16/2020 CDI/CDS Name: Bebo Daniel Clinical Documentation States: 89-year-old male, who presents with chief complaint of vomiting blood. [ H&P Jorge Luis Javed M.D. 06/14/20] ASSESSMENT: Hematemesis, Upper gastrointestinal hemorrhage, Acute renal failure, Hypertension, Non-Hodgkin's lymphoma. Clinical Documentation States: 06/14 06/15 06/16 07:45 05:30 05:37 Creatinine 7.3 6.4 4.8 BUN 154 138 88 GFR 7.1 8.3 11.5 Medications: Sodium Chloride IV 06/14 Please Clarify the type of renal failure below: Etiology [X] Acute Renal Failure w/ Tubular Necrosis [] Acute Renal Failure w/ Cortical Necrosis [] Acute Renal Failure w/ Medullary Necrosis [] Acute Renal Failure (unspecified) [] Other: Present on Admission: [X] Yes [] No [] Clinically Undetermined Physician signature Date Please also document in your Progress Notes and/or Discharge Summary and indicate if the condition was present on admission. MTDD
--- NOTE | 2020-06-16 10:19 | General Progress Note ---
Assessment/Plan Problem List: (1) Obstructive nephropathy ICD Codes: N13.8 - Other obstructive and reflux uropathy SNOMED: 31133248 (2) Lymphoma ICD Codes: C85.90 - Non-Hodgkin lymphoma, unspecified, unspecified site SNOMED: 591916661 (3) Hydronephrosis ICD Codes: N13.30 - Unspecified hydronephrosis SNOMED: 42297131 (4) GI bleed ICD Codes: K92.2 - Gastrointestinal hemorrhage, unspecified SNOMED: 90820338 Qualifiers: Qualified Codes: K92.2 - Gastrointestinal hemorrhage, unspecified (5) Transaminitis ICD Codes: R74.0 - Nonspecific elevation of levels of transaminase and lactic acid dehydrogenase [LDH] SNOMED: 637741364, 780839906 (6) Lactic acid acidosis ICD Codes: E87.2 - Acidosis SNOMED: 70090366 (7) History of hypertension ICD Codes: Z86.79 - Personal history of other diseases of the circulatory system SNOMED: 118961772 Assessment/Plan: ppi fu H&H abd us>>reviewed>> ? porceline GB>>> fu surg recs hepatitis panel>>neg repeat lfts in am EGD canceled for now HD per nephrology fu stool ob poor po intake bowel regimen will fu Subjective ROS Limited/Unobtainable: Yes Allergies: Coded Allergies: No Known Allergies (Unverified , 06/14/20) Objective Last 24 Hour Vital Signs Date Time Temp Pulse Resp B/P (MAP) Pulse Ox O2 Delivery O2 Flow Rate FiO2 06/16/20 08:00 98.8 90 18 116/66 (83) 99 06/16/20 04:00 82 06/16/20 04:00 98.0 74 20 140/56 (84) 94 06/16/20 00:00 98.3 62 20 102/50 (67) 95 06/16/20 00:00 88 06/15/20 21:00 Nasal Cannula 2.0 06/15/20 20:20 118/52 (74) 06/15/20 20:00 99.0 55 22 110/58 (75) 95 06/15/20 20:00 102 06/15/20 16:00 97.9 101 20 95/47 (63) 96 06/15/20 15:26 97 7/22/20 12:00 83 26 101/31 (54) 100 06/15/20 11:43 107 Intake and Output 06/15/20 06/16/20 19:00 07:00 Intake Total 1000 ml 1300 ml Output Total 450 ml 400 ml Balance 550 ml 900 ml Intake Oral 100 ml IV Total 1000 ml Other 1200 ml Output Urine Total 450 ml 400 ml Hemodialysis UF 0 ml # Voids 1 Laboratory Tests 06/16/20 03:40: Urine Eosinophils None seen 06/16/20 05:37: White Blood Count 8.4, Red Blood Count 4.31L, Hemoglobin 11.3L, Hematocrit 36.5L , Mean Corpuscular Volume 85, Mean Corpuscular Hemoglobin 26.1L, Mean Corpuscular Hemoglobin Concent 30.8L, Red Cell Distribution Width 14.2, Platelet Count 57L, Mean Platelet Volume 11.1H, Neutrophils (%) (Auto) , Lymphocytes (%) (Auto) , Monocytes (%) (Auto) , Eosinophils (%) (Auto) , Basophils (%) (Auto) , Neutrophils % (Manual) [Pending], Lymphocytes % (Manual) [Pending], Platelet Estimate [Pending], Platelet Morphology [Pending], Erythrocyte Sedimentation Rate 47H, Sodium Level 145, Potassium Level 3.5, Chloride Level 106, Carbon Dioxide Level 27, Anion Gap 12, Blood Urea Nitrogen 88H, Creatinine 4.8H, Estimat Glomerular Filtration Rate 11.5, Glucose Level 104 , Calcium Level 9.5, Phosphorus Level 5.3H, Magnesium Level 2.6H, Total Bilirubin 1.3H, Direct Bilirubin 0.3, Aspartate Amino Transf (AST/SGOT) 142H, Alanine Aminotransferase (ALT/SGPT) 94H, Alkaline Phosphatase 281H, C-Reactive Protein, Quantitative 5.7H, Total Protein 5.1L, Albumin 2.3L, Globulin 2.8, Albumin/Globulin Ratio 0.8L, Amylase Level 269H, Lipase 598H Height (Feet): 6 Height (Inches): 2.00 Weight (Pounds): 197 General Appearance: alert EENT: normal ENT inspection Neck: supple Cardiovascular: normal rate Respiratory/Chest: decreased breath sounds Abdomen: normal bowel sounds, non tender, soft Extremities: non-tender Sam Negron MD Jun 16, 2020 10:19
--- NOTE | 2020-06-16 10:21 | Pulmonology Progress Note ---
Subjective ROS Limited/Unobtainable: No Interval Events: getting HD Constitutional: Reports: no symptoms HEENT: Repors: no symptoms Allergies: Coded Allergies: No Known Allergies (Unverified , 06/14/20) Objective Last 24 Hour Vital Signs Date Time Temp Pulse Resp B/P (MAP) Pulse Ox O2 Delivery O2 Flow Rate FiO2 06/16/20 08:00 98.8 90 18 116/66 (83) 99 06/16/20 04:00 82 06/16/20 04:00 98.0 74 20 140/56 (84) 94 06/16/20 00:00 98.3 62 20 102/50 (67) 95 06/16/20 00:00 88 06/15/20 21:00 Nasal Cannula 2.0 06/15/20 20:20 118/52 (74) 06/15/20 20:00 99.0 55 22 110/58 (75) 95 06/15/20 20:00 102 06/15/20 16:00 97.9 101 20 95/47 (63) 96 06/15/20 15:26 97 06/15/20 12:00 83 26 101/31 (54) 100 06/15/20 11:43 107 Intake and Output 06/15/20 06/16/20 19:00 07:00 Intake Total 1000 ml 1300 ml Output Total 450 ml 400 ml Balance 550 ml 900 ml Intake Oral 100 ml IV Total 1000 ml Other 1200 ml Output Urine Total 450 ml 400 ml Hemodialysis UF 0 ml # Voids 1 General Appearance: WD/WN HEENT: normocephalic, atraumatic Respiratory: chest wall non-tender, lungs clear Cardiovascular: normal peripheral pulses, normal rate Abdomen: normal bowel sounds, soft, non tender, no scars Genitourinary: normal external genitalia Extremities: no cyanosis, no clubbing Skin: no ulcers Neurologic: ict managers II-XII grossly normal Microbiology Date/Time Source Procedure Growth Status 06/14/20 07:45 Blood Blood Culture - Preliminary NO GROWTH AFTER 24 HOURS Resulted 06/14/20 07:45 Blood Blood Culture - Preliminary NO GROWTH AFTER 24 HOURS Resulted Laboratory Tests 06/16/20 03:40: Urine Eosinophils None seen 06/16/20 05:37: White Blood Count 8.4, Red Blood Count 4.31L, Hemoglobin 11.3L, Hematocrit 36.5L , Mean Corpuscular Volume 85, Mean Corpuscular Hemoglobin 26.1L, Mean Corpuscular Hemoglobin Concent 30.8L, Red Cell Distribution Width 14.2, Platelet Count 57L, Mean Platelet Volume 11.1H, Neutrophils (%) (Auto) , Lymphocytes (%) (Auto) , Monocytes (%) (Auto) , Eosinophils (%) (Auto) , Basophils (%) (Auto) , Differential Total Cells Counted 100, Neutrophils % ( Manual) 78H, Lymphocytes % (Manual) 15L, Monocytes % (Manual) 6, Eosinophils % ( Manual) 0, Basophils % (Manual) 1, Band Neutrophils 0, Platelet Estimate DecreasedL, Platelet Morphology Normal, Erythrocyte Sedimentation Rate 47H, Sodium Level 145, Potassium Level 3.5, Chloride Level 106, Carbon Dioxide Level 27, Anion Gap 12, Blood Urea Nitrogen 88H, Creatinine 4.8H, Estimat Glomerular Filtration Rate 11.5, Glucose Level 104, Calcium Level 9.5, Phosphorus Level 5.3H, Magnesium Level 2.6H, Total Bilirubin 1.3H, Direct Bilirubin 0.3, Aspartate Amino Transf (AST/SGOT) 142H, Alanine Aminotransferase (ALT/SGPT) 94H , Alkaline Phosphatase 281H, C-Reactive Protein, Quantitative 5.7H, Total Protein 5.1L, Albumin 2.3L, Globulin 2.8, Albumin/Globulin Ratio 0.8L, Amylase Level 269H, Lipase 598H Current Medications Medications (Trade) Dose Ordered Sig/Tasia Route PRN Reason Start Time Stop Time Status Last Admin Dose Admin Acetaminophen (Tylenol) 650 mg Q4H PRN ORAL fever (T>100.5F) 06/14/20 12:30 07/14/20 12:29 Aluminum Hydroxide (Amphojel) 1,920 mg Q6H ORAL 06/14/20 16:00 07/14/20 15:59 06/16/20 09:27 Dextrose 1,000 ml @ 100 mls/hr Q10H IV 06/15/20 10:07 07/15/20 10:06 06/16/20 05:21 Dextrose (Dextrose 50%) 25 ml Q30M PRN IV Hypoglycemia 06/14/20 12:30 09/12/20 12:29 Dextrose (Dextrose 50%) 50 ml Q30M PRN IV Hypoglycemia 06/14/20 12:30 09/12/20 12:29 Diphenhydramine HCl (Benadryl) 25 mg Q6H PRN ORAL Itching/Pruritis 06/14/20 12:30 07/14/20 12:29 Docusate Sodium (Colace) 100 mg THREE TIMES A DAY ORAL 06/14/20 18:00 07/14/20 17:59 06/16/20 09:27 Iopamidol (Isovue-300 100ml) 100 ml NOW PRN INJ radiology 06/14/20 12:45 Lactulose (Cephulac) 20 gm BID ORAL 06/16/20 18:00 07/16/20 17:59 Lidocaine HCl (Xylocaine 1% 30ml) 30 ml ONCE PRN INJ radiology procedure 06/14/20 12:45 09/12/20 12:44 Metolazone (Zaroxolyn) 10 mg ONCE ORAL 06/16/20 10:00 06/16/20 12:00 Ondansetron HCl (Zofran) 4 mg Q6H PRN IVP Nausea & Vomiting 06/14/20 12:30 07/14/20 12:29 Pantoprazole (Protonix) 40 mg EVERY 12 HOURS IVP 06/14/20 21:00 07/14/20 20:59 06/16/20 09:27 Polyethylene Glycol (Miralax) 17 gm BEDTIME ORAL 06/16/20 21:00 07/16/20 20:59 Temazepam (Restoril) 15 mg HSPRN PRN ORAL Insomnia 06/14/20 12:30 06/21/20 12:29 Assessment/Plan Problems: (1) Upper GI bleeding (2) YU (acute kidney injury) (3) Hydronephrosis (4) Obstructive nephropathy (5) Lymphoma (6) History of hypertension Assessment/Plan h/h stable got HD\ check electrolytes check electrolytes h2 blockers avoid heparin and NSAID avoid nephrotoxic meds. dvt prophylaxis. pt stable for transfer Pedro Luis Michaels MD Jun 16, 2020 10:21
[2020-06-16 12:00] VITALS: BP 91/44
--- NOTE | 2020-06-16 13:53 | Surgery Progress Note ---
Surgery Progress Note Subjective Procedure Performed Right femoral temporary hemodialysis catheter insertion Additional Comments no acute events comfortable stable labs improved receiving HD Objective Last 24 Hour Vital Signs Date Time Temp Pulse Resp B/P (MAP) Pulse Ox O2 Delivery O2 Flow Rate FiO2 06/16/20 12:00 99.1 97 20 91/44 (60) 95 06/16/20 11:32 92 06/16/20 09:00 Nasal Cannula 2.0 06/16/20 08:00 98.8 90 18 116/66 (83) 99 06/16/20 07:41 87 06/16/20 04:00 82 06/16/20 04:00 98.0 74 20 140/56 (84) 94 06/16/20 00:00 98.3 62 20 102/50 (67) 95 06/16/20 00:00 88 06/15/20 21:00 Nasal Cannula 2.0 06/15/20 20:20 118/52 (74) 06/15/20 20:00 99.0 55 22 110/58 (75) 95 06/15/20 20:00 102 06/15/20 16:00 97.9 101 20 95/47 (63) 96 06/15/20 15:26 97 I&O Intake and Output 06/15/20 06/16/20 19:00 07:00 Intake Total 1000 ml 1300 ml Output Total 450 ml 400 ml Balance 550 ml 900 ml Intake Oral 100 ml IV Total 1000 ml Other 1200 ml Output Urine Total 450 ml 400 ml Hemodialysis UF 0 ml # Voids 1 Dressing: dry Wound: clean Cardiovascular: RSR Abdomen: non-tender, present bowel sounds Extremities: no edema, no tenderness, no cyanosis Laboratory Tests Test 06/16/20 03:40 06/16/20 05:37 Urine Eosinophils None seen (NONE SEEN) White Blood Count 8.4 K/UL (4.8-10.8) Red Blood Count 4.31 M/UL (4.70-6.10) L Hemoglobin 11.3 G/DL (14.2-18.0) L Hematocrit 36.5 % (42.0-52.0) L Mean Corpuscular Volume 85 FL (80-99) Mean Corpuscular Hemoglobin 26.1 PG (27.0-31.0) L Mean Corpuscular Hemoglobin Concent 30.8 G/DL (32.0-36.0) L Red Cell Distribution Width 14.2 % (11.6-14.8) Platelet Count 57 K/UL (150-450) L Mean Platelet Volume 11.1 FL (6.5-10.1) H Neutrophils (%) (Auto) % (45.0-75.0) Lymphocytes (%) (Auto) % (20.0-45.0) Monocytes (%) (Auto) % (1.0-10.0) Eosinophils (%) (Auto) % (0.0-3.0) Basophils (%) (Auto) % (0.0-2.0) Differential Total Cells Counted 100 Neutrophils % (Manual) 78 % (45-75) H Lymphocytes % (Manual) 15 % (20-45) L Monocytes % (Manual) 6 % (1-10) Eosinophils % (Manual) 0 % (0-3) Basophils % (Manual) 1 % (0-2) Band Neutrophils 0 % (0-8) Platelet Estimate Decreased L Platelet Morphology Normal Erythrocyte Sedimentation Rate 47 MM/HR (0-20) H Sodium Level 145 MMOL/L (136-145) Potassium Level 3.5 MMOL/L (3.5-5.1) Chloride Level 106 MMOL/L (98-107) Carbon Dioxide Level 27 MMOL/L (21-32) Anion Gap 12 mmol/L (5-15) Blood Urea Nitrogen 88 mg/dL (7-18) H Creatinine 4.8 MG/DL (0.55-1.30) H Estimat Glomerular Filtration Rate 11.5 mL/min (>60) Glucose Level 104 MG/DL (74-106) Calcium Level 9.5 MG/DL (8.5-10.1) Phosphorus Level 5.3 MG/DL (2.5-4.9) H Magnesium Level 2.6 MG/DL (1.8-2.4) H Total Bilirubin 1.3 MG/DL (0.2-1.0) H Direct Bilirubin 0.3 MG/DL (0.0-0.3) Aspartate Amino Transf (AST/SGOT) 142 U/L (15-37) H Alanine Aminotransferase (ALT/SGPT) 94 U/L (12-78) H Alkaline Phosphatase 281 U/L (46-116) H C-Reactive Protein, Quantitative 5.7 mg/dL (0.00-0.90) H Total Protein 5.1 G/DL (6.4-8.2) L Albumin 2.3 G/DL (3.4-5.0) L Globulin 2.8 g/dL Albumin/Globulin Ratio 0.8 (1.0-2.7) L Amylase Level 269 U/L (25-115) H Lipase 598 U/L (73-393) H Plan Problems: (1) History of hypertension (2) Upper GI bleeding (3) Lactic acid acidosis (4) Transaminitis Assessment & Plan: Liver is diffusely heterogeneous. Spleen is within normal limits for size. There is abnormal wall thickening and perhaps wall calcifications noted of the gallbladder. Intraluminal sludge noted. Common bile duct measures 5 mm. Pancreas is marginally visualized. There are multiple cysts noted in both kidneys. Dominant lesion at the lower pole of the left kidney is complex with mural wall thickening and septations. Wall calcifications was noted of this lesion on prior CT. Aorta and cava are mostly obscured. (5) YU (acute kidney injury) Assessment & Plan: HD cath placed 06/15 plan for HD improving cont HD as per renal will monitor dressing changes (6) GI bleed Assessment & Plan: Chest: The upper lobes and upper portions of the lower lobes demonstrate mild panlobular emphysema. A few small bullae are seen in the right upper lobe. A few areas of scarring are seen in the anterior inferior right upper lobe, within the right middle lobe, within the left lower lobe and inferior lingula. A calcified granuloma is seen at the left lung base and there is calcification within some of the scarring in the right middle lobe. No infiltrates, effusions, masses, nodules, or congestion demonstrated. A mass, presumably an enlarged lymph node, there is seen anterior to the ascending thoracic aorta. This measures 3.2 cm in diameter. No other mediastinal or hilar mass or adenopathy demonstrated. The heart size is normal. No pericardial effusion. There is very mild thickening of the distal esophageal wall and possibly a small hiatal hernia. The included thyroid is unremarkable. No axillary or chest wall mass or adenopathy. There is very mild bilateral gynecomastia. The bones are unremarkable except for mild degenerative spondylosis changes. The ascending thoracic aorta is ectatic but not frankly aneurysmal Abdomen pelvis: Lack of enteric contrast limits assessment of the GI tract. There is colonic diverticulosis. The appendix is normal. No small bowel distention. No free or loculated intraperitoneal gas or fluid is evident. There is extensive abdominal and pelvic lymphadenopathy. Enlarged nodes are seen anterior superior to the left hepatic lobe, within the lesser sac, within the reginaldo hepatis and within the retroperitoneum. There are enlarged bilateral iliac chain nodes. Enlarged nodes are also seen centrally in the pelvis. There is a mass which appears to be with in the wall of the dome of of the bladder the and extending exophytically from it. There is a mass which appears intimately related to the colon wall. The gallbladder is markedly abnormal, demonstrates what appear to be multiple areas of hyperattenuating mural thickening. No definite gallstones. No biliary ductal dilatation. Lack of IV contrast limits assessment of the solid organs. The liver demonstrates a subcentimeter low-attenuation lesion in segment 4A which is too small to characterize. The pancreas demonstrates what appears to be an area of enlargement at the body tail junction which appears to be intrinsic to the pancreatic parenchyma. Immediately inferior to this is an enlarged node. The spleen and adrenals are unremarkable. The kidneys demonstrate multiple fluid attenuation cysts as well as numerous hyperattenuating lesions. Most of the hyperattenuating lesions demonstrate Hounsfield numbers over 70, consistent with hyperdense cysts, but others demonstrate nonspecific attenuation. In addition, there is a large mass measuring 5 cm within the central left kidney which is isoattenuating to normal parenchyma. There is a complex cyst in the lower pole of left kidney which demonstrates somewhat thick hawkins, mural calcifications, and somewhat thick mural septa. The right kidney is mildly to moderately hydronephrotic, and there is hydroureter extending to just above the bladder, where an enlarged node is noted. Distal to this enlarged node, the ureter is normal in caliber. There are no renal or ureteral calculi. No left hydronephrosis or hydroureter The prostate is enlarged, measures 5.2 cm transverse diameter. IMPRESSION: Extensive lymphadenopathy, as described in detail above. Predominantly within the abdomen and pelvis, but there is also an enlarged mediastinal node. This is in keeping with stated clinical history of lymphoma. No definite acute thoracic abnormality Right hydronephrosis and hydroureter, apparently due to distal ureteral obstruction by an enlarged pelvic node Markedly abnormal and unusual appearing gallbladder wall, with areas of hyperattenuating mural thickening. Further investigation with sonography should be considered Intermediate attenuation 5 cm interpolar region left renal mass. While possibly a proteinaceous cyst, the possibility of solid neoplasm should also be considered. Correlate with clinical history, consider sonography to better characterize as clinically indicated Multiple bilateral fluid attenuation and hyperattenuating renal cysts. Other slightly less hyperattenuating renal lesions are indeterminate but most likely represent hyperattenuating/proteinaceous cysts as well COPD changes and areas of scarring, as described Mild distal esophageal wall thickening and possibly a small hiatal hernia Prostatomegaly Other findings as noted, including degenerative spondylosis, old granulomatous disease, mild gynecomastia (7) Hydronephrosis (8) Lymphoma (9) Obstructive nephropathy Best Kam Jun 16, 2020 13:53
[2020-06-16 16:00] VITALS: BP 101/51
--- NOTE | 2020-06-16 16:38 | Internal Med Progress Note ---
Subjective Date of Service: Jun 16, 2020 Physician Name TeganJorge Luis Attending Physician Fabien Bailey MD Current Medications Medications (Trade) Dose Ordered Sig/Tasia Route PRN Reason Start Time Stop Time Status Last Admin Dose Admin Acetaminophen (Tylenol) 650 mg Q4H PRN ORAL fever (T>100.5F) 06/14/20 12:30 07/14/20 12:29 Aluminum Hydroxide (Amphojel) 1,920 mg Q6H ORAL 06/14/20 16:00 07/14/20 15:59 06/16/20 09:27 Atorvastatin Calcium (Lipitor) 20 mg BEDTIME ORAL 06/16/20 21:00 09/14/20 20:59 Dextrose 1,000 ml @ 100 mls/hr Q10H IV 06/15/20 10:07 07/15/20 10:06 06/16/20 15:19 Dextrose (Dextrose 50%) 25 ml Q30M PRN IV Hypoglycemia 06/14/20 12:30 09/12/20 12:29 Dextrose (Dextrose 50%) 50 ml Q30M PRN IV Hypoglycemia 06/14/20 12:30 09/12/20 12:29 Diphenhydramine HCl (Benadryl) 25 mg Q6H PRN ORAL Itching/Pruritis 06/14/20 12:30 07/14/20 12:29 Docusate Sodium (Colace) 100 mg THREE TIMES A DAY ORAL 06/14/20 18:00 07/14/20 17:59 06/16/20 13:04 Finasteride (Proscar) 5 mg DAILY ORAL 06/17/20 09:00 09/15/20 08:59 Iopamidol (Isovue-300 100ml) 100 ml NOW PRN INJ radiology 06/14/20 12:45 Lactulose (Cephulac) 20 gm BID ORAL 06/16/20 18:00 07/16/20 17:59 Lidocaine HCl (Xylocaine 1% 30ml) 30 ml ONCE PRN INJ radiology procedure 06/14/20 12:45 09/12/20 12:44 Ondansetron HCl (Zofran) 4 mg Q6H PRN IVP Nausea & Vomiting 06/14/20 12:30 07/14/20 12:29 Pantoprazole (Protonix) 40 mg EVERY 12 HOURS IVP 06/14/20 21:00 8/20/20 20:59 06/16/20 09:27 Polyethylene Glycol (Miralax) 17 gm BEDTIME ORAL 06/16/20 21:00 07/16/20 20:59 Tamsulosin HCl (Flomax) 0.4 mg BID ORAL 06/16/20 18:00 07/16/20 17:59 Temazepam (Restoril) 15 mg HSPRN PRN ORAL Insomnia 06/14/20 12:30 06/21/20 12:29 Allergies: Coded Allergies: No Known Allergies (Unverified , 06/14/20) ROS Limited/Unobtainable: Yes Subjective 89 YO M with history of Non Hodgkin's lymphoma admitted for hematemesis. Now Upper GI bleed and renal failure. Cover for Int Med-Dr Bailey. Endoscopy postponed due to renal failure Objective Last Vital Signs Date Time Temp Pulse Resp B/P (MAP) Pulse Ox O2 Delivery O2 Flow Rate FiO2 06/16/20 12:00 99.1 97 20 91/44 (60) 95 06/16/20 09:00 Nasal Cannula 2.0 Laboratory Tests Test 06/16/20 03:40 06/16/20 05:37 Urine Eosinophils None seen (NONE SEEN) White Blood Count 8.4 K/UL (4.8-10.8) Red Blood Count 4.31 M/UL (4.70-6.10) L Hemoglobin 11.3 G/DL (14.2-18.0) L Hematocrit 36.5 % (42.0-52.0) L Mean Corpuscular Volume 85 FL (80-99) Mean Corpuscular Hemoglobin 26.1 PG (27.0-31.0) L Mean Corpuscular Hemoglobin Concent 30.8 G/DL (32.0-36.0) L Red Cell Distribution Width 14.2 % (11.6-14.8) Platelet Count 57 K/UL (150-450) L Mean Platelet Volume 11.1 FL (6.5-10.1) H Neutrophils (%) (Auto) % (45.0-75.0) Lymphocytes (%) (Auto) % (20.0-45.0) Monocytes (%) (Auto) % (1.0-10.0) Eosinophils (%) (Auto) % (0.0-3.0) Basophils (%) (Auto) % (0.0-2.0) Differential Total Cells Counted 100 Neutrophils % (Manual) 78 % (45-75) H Lymphocytes % (Manual) 15 % (20-45) L Monocytes % (Manual) 6 % (1-10) Eosinophils % (Manual) 0 % (0-3) Basophils % (Manual) 1 % (0-2) Band Neutrophils 0 % (0-8) Platelet Estimate Decreased L Platelet Morphology Normal Erythrocyte Sedimentation Rate 47 MM/HR (0-20) H Sodium Level 145 MMOL/L (136-145) Potassium Level 3.5 MMOL/L (3.5-5.1) Chloride Level 106 MMOL/L (98-107) Carbon Dioxide Level 27 MMOL/L (21-32) Anion Gap 12 mmol/L (5-15) Blood Urea Nitrogen 88 mg/dL (7-18) H Creatinine 4.8 MG/DL (0.55-1.30) H Estimat Glomerular Filtration Rate 11.5 mL/min (>60) Glucose Level 104 MG/DL (74-106) Calcium Level 9.5 MG/DL (8.5-10.1) Phosphorus Level 5.3 MG/DL (2.5-4.9) H Magnesium Level 2.6 MG/DL (1.8-2.4) H Total Bilirubin 1.3 MG/DL (0.2-1.0) H Direct Bilirubin 0.3 MG/DL (0.0-0.3) Aspartate Amino Transf (AST/SGOT) 142 U/L (15-37) H Alanine Aminotransferase (ALT/SGPT) 94 U/L (12-78) H Alkaline Phosphatase 281 U/L (46-116) H C-Reactive Protein, Quantitative 5.7 mg/dL (0.00-0.90) H Total Protein 5.1 G/DL (6.4-8.2) L Albumin 2.3 G/DL (3.4-5.0) L Globulin 2.8 g/dL Albumin/Globulin Ratio 0.8 (1.0-2.7) L Amylase Level 269 U/L (25-115) H Lipase 598 U/L (73-393) H Microbiology Date/Time Source Procedure Growth Status 06/14/20 07:45 Blood Blood Culture - Preliminary NO GROWTH AFTER 24 HOURS Resulted 7/21/20 07:45 Blood Blood Culture - Preliminary NO GROWTH AFTER 24 HOURS Resulted 06/16/20 12:18 Nasopharynx SARS-CoV-2 RdRp Gene Assay - Final Complete Intake and Output 06/15/20 06/16/20 19:00 07:00 Intake Total 1000 ml 1300 ml Output Total 450 ml 400 ml Balance 550 ml 900 ml Intake Oral 100 ml IV Total 1000 ml Other 1200 ml Output Urine Total 450 ml 400 ml Hemodialysis UF 0 ml # Voids 1 Objective PHYSICAL EXAMINATION: GENERAL: The patient is a well-developed and well-nourished male, in no apparent distress. HEENT: Eyes, pupils are equal and responsive to light and accommodation. Extraocular movements intact. NECK: Supple without lymphadenopathy. CHEST: Lungs are clear to auscultation bilaterally without wheezes or rales. CARDIOVASCULAR: Regular rhythm and rate. S1 and S2 are normal without murmurs, rubs, or gallops. ABDOMEN: Soft, nondistended with positive bowel sounds. There is tenderness to palpation in the epigastric region. No evidence of rebound or guarding noted. EXTREMITIES: Negative for clubbing, cyanosis, or edema. RECTAL: Not performed. GENITAL: Not performed. NEUROLOGIC: Cranial nerves II through XII are grossly intact without focal deficits. Motor strength is 5/5 bilaterally intact. Deep tendon reflexes are 2+, plantar. Assessment/Plan Assessment/Plan ASSESSMENT: This is an 89-year-old male with: 1. Hematemesis. 2. Upper gastrointestinal hemorrhage. 3. Epigastric pain. 4. Acute renal failure. 5. Hypertension. 6. Non-Hodgkin's lymphoma. 7. Elevated liver function tests. 8. Left hydronephrosis. 9. Hypercholesterolemia. 10. Gout. 11. Benign prostatic hypertrophy. 12. Gastroesophageal reflux disease. TREATMENT: 1. Hematemesis/upper gastrointestinal hemorrhage. A Gastroenterology consultation has been obtained with Dr. Sam Negron. Endoscopy scheduled 06/15/20 postponed due to renal failure. We will follow recommendations of Gastroenterology. Differential includes gastritis versus gastric cancer secondary to non-Hodgkin's lymphoma. 2. Acute renal failure. A Nephrology consultation has been obtained with Dr. Thomas Ruby. Hemodialysis 06/15/20. We will follow recommendations of Nephrology. Renal failure may be secondary to obstruction of the distal ureter as above. 3. Non-Hodgkin's lymphoma. 4. Elevated liver function tests. A Gastroenterology consultation has been obtained with Dr. Sam Negron. 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 Surgery=Dr Kam 5. Right hydronephrosis. A Nephrology consultation has been obtained with Dr. Ruby. 6. Hypertension. Continue antihypertensive medications as above. 7. Hypercholesterolemia. 8. Gout. 9. Benign prostatic hypertrophy. 10. History of gastroesophageal reflux. Jorge Luis Javed MD Jun 16, 2020 16:38
[2020-06-16] MEDS ORDERED: Tamsulosin 0.4mg cap ORAL SCH (18:00)
[2020-06-16] MEDS ORDERED: Lactulose 20gm/30ml UDC ORAL SCH (18:00)
[2020-06-16 20:00] VITALS: BP 95/52
[2020-06-16] MEDS ORDERED: Miralax 17gm pkt ORAL SCH (21:00)
[2020-06-16] MEDS ORDERED: Atorvastatin 20mg tab ORAL SCH (21:00)
--- NOTE | 2020-06-20 08:28 | Discharge Summary ---
Discharge Summary Discharge Summary _ DATE OF ADMISSION: 06/14/2020 DATE OF DISCHARGE: 06/16/2020 DISCHARGED BY: Dr. Bailey REASON FOR ADMISSION: 89 years old male with past medical history of hypertension, non-Hodgkin lymphoma, hypercholesterolemia, gout, BPH, GERD, presented with hematemesis for 1 day. Patient symptoms started suddenly. Patient denied chest pain, but endorsed some shortness of breath. Trace of blood with the vomiting and cough. He was unable to specify if he felt lightheaded. Epigastric and periumbilical pain was reported. Upon evaluation patient was hypotensive with blood pressure 81/40, pulse oximetry was stable on room air and patient was afebrile. Laboratory work-up revealed no leukocytosis, stable hemoglobin , hematocrit ; platelet count 149. Sodium 147. BUN 154, creatinine 7.3. Lactic acid 5.3. Glucose 113. Calcium 10.8, phosphorus 8.4, magnesium 3.2. AST 109, ALT 124. Lipase 726. Troponin 0.039 pro BNP 1320. Urinalysis revealed +2 blood ,+1 leukocyte esterase, hematuria ,but no pyuria , no evidence of urinary tract infection. Chest x-ray demonstrated bibasilar atelectasis , but no acute process otherwise. CT scan of the chest, abdomen and pelvis revealed extensive lymphadenopathy , predominantly within the abdomen and pelvis ,consistent with the stated clinical history of lymphoma. No definite acute thoracic abnormality. Right hydronephrosis and hydroureter , apparently due to distal ureteral obstruction by enlarged pelvic node. 5 cm interpolar region left renal mass ; possibility of solid neoplasm should be considered. Multiply bilateral renal cyst, most likely representing proteinaceous cyst. COPD changes. Mild distal esophageal wall thickening , possibly small hiatal hernia. Prostatomegaly. Farr catheter was placed in ED. Renal ultrasound revealed mild right hydronephrosis secondary to distal ureteral compression by lymphadenopathy. Bladder wall mass, likely neoplastic. Multiply renal cyst bilaterally. Left lower pole cyst complex with a thick septation . Farr catheter with resultant empty bladder Lactic acidosis improved with IV fluids. In emergency department patient received Protonix, IV fluids ,typed and screened. Patient received broad-spectrum antibiotics. Patient admitted to telemetry floor for further management. CONSULTANTS: pulmonary/critical care Dr. Michaels GI specialist Dr. Negron hydrator operator Dr. Ruby [facility]: Patient admitted to telemetry floor and started on IV fluids and empiric antibiotics. Blood cultures were negative. Rapid COVID-19 was negative. Renal parameters and electrolytes were closely monitored . GI prophylaxis provided. Heparin and NSAID were avoided . Renal parameters and electrolytes were closely monitored. Nephrotoxic's were avoided. Patient undergone placement of a temporary right femoral hemodialysis catheter on 06/15 by general surgeon. Patient subsequently was started on hemodialysis as per hydrator operator recommendation. Farr catheter was in place. One dose of Zaroxolyn was given. No need for nephrostomy tube at this time since the blockage was unilateral. Phosphorus binders provided. Blood pressure was kept in check. Proscar and Flomax continued.. Hemodynamic status was closely monitored, and remained stable. Blood pressure improved. Hepatitis panel was negative. LFT and lipase trending down, still remained elevated. Hepatitis panel was negative. Abdominal ultrasound revealed abnormal wall thickening and wall calcification of the gallbladder, possible porcelain gallbladder . Intraluminal sludge noted , but no definite stone. Heterogeneous liver. Hemoglobin and hematocrit were closely monitored with goal to keep hemoglobin above 7, remained stable. Platelets trended down. Continue to monitor counts at the accepting facility. Transfer was arranged to insurance affiliated facility. Patient was stable for transfer. FINAL DIAGNOSES: Acute renal failure with tubular necrosis , possibly on underlying chronic kidney disease Obstructive nephropathy Right hydronephrosis Non-Hodgkin lymphoma Upper GI bleeding Hypertension Lactic acidosis Transaminitis BPH DISCHARGE MEDICATIONS: List of medication was sent to accepting facility DISCHARGE INSTRUCTIONS: Patient was transferred to [facility] as per insurance. I have been assigned to dictate discharge summary for this account. I was not involved in the patient's management. Kareen Ortiz NP Jun 20, 2020 08:28
== END 2020-06-16 20:25 | disposition critical access hospital, planned readmission (94) | DRG 377 ==
LOC: EDBD 07:33 → EMR 07:45 → 2E 10:04 → EDBEDREQ 11:12
PROC: 06HM33Z Insertion of Infusion Device into Right Femoral Vein, Percutaneous Approach (ICD-10-PCS; principal; 2020-06-15)
PROC: 5A1D70Z Performance of Urinary Filtration, Intermittent, Less than 6 Hours Per Day (ICD-10-PCS; 2020-06-15)
DX: K92.2 Gastrointestinal hemorrhage, unspecified (principal); N17.0 Acute kidney failure with tubular necrosis; N13.30 Unspecified hydronephrosis; N13.8 Other obstructive and reflux uropathy; C85.90 Non-Hodgkin lymphoma, unspecified, unspecified site; Z86.79 Personal history of other diseases of the circulatory system; M10.9 Gout, unspecified; K21.0 Gastro-esophageal reflux disease with esophagitis; N40.1 Benign prostatic hyperplasia with lower urinary tract symptoms; I10 Essential (primary) hypertension; N28.1 Cyst of kidney, acquired
CPT/HCPCS: 36415; 71045; 71250; 74176; 76700; 76770; 80053; 80061; 81003; 82043; 82150; 82248; 82550; 82607; 82728; 82746; 82977; 83036; 83540; 83550; 83605; 83690; 83735; 83880; 84100; 84153; 84300; 84443; 84484; 84550; 85007; 85025; 85610; 85651; 85730; 86140; 86705; 86706; 86709; 86803; 86850; 86900; 86901; 87040; 87081; 87340; 89050; 93005; 96361; 96365; 96367; 96375; 99291; J7030; U0002